=== PATIENT | male | born 1950 | race Caucasian/White ===

== ENCOUNTER → 2020-04-07 17:13 | Outpatient (CLI) | payer OTHER, MEDICARE, SELFPAY ==
[2020-04-07 17:31] LABS: Basophils # 0.1 K/mm3 (0-0.2); Basophils % 0.8 % (0.1-2.0); Eosinophils # 0.5 K/mm3 (0.0-0.4); Eosinophils % 6.7 % (0.1-12.0); Hemoglobin 16.5 g/dL (14.1-18.0); Lymphocytes # 2.4 K/mm3 (0.7-4.5); Mean Corpuscular HGB Conc 33.7 g/dL (31.8-35.4); Mean Corpuscular Hemoglobin 32.7 pg (27.0-31.2); Mean Corpuscular Volume 96.9 fl (80-94); Mean Platelet Volume 7.6 fl (7.4-10.4); Monocytes # 0.5 K/mm3 (0.1-1.0); Monocytes % 5.8 % (1.7-9.3); Neutrophils # 4.5 K/mm3 (1.8-7.8); Neutrophils % 56.7 % (37.0-80.0); Platelet Count 339 K/mm3 (142-424); Red Blood Count 5.05 M/mm3 (4.60-6.20); White Blood Count 7.9 K/mm3 (4.8-10.8)
[2020-04-07 18:58] LABS: Chloride 104 mmol/L (98-107); Sodium 138 mmol/L (136-145)
[2020-04-07 18:59] LABS: Potassium 4.6 mmoL/L (3.5-5.1)
[2020-04-07 19:01] LABS: Alanine Aminotransferase 31 U/L (12-78); Albumin Level 4.1 g/dl (3.5-5.0); Albumin/Globulin Ratio 1.4 (1.1-1.8); Alkaline Phosphatase 66 U/L (38-126); Anion Gap 10.6 mEq/L (5-15); Aspartate Amino Transferase 47 U/L (17-59); Bilirubin,Total 0.8 mg/dl (0.2-1.3); Blood Urea Nitrogen 24 mg/dl (9-20); Carbon Dioxide 28 mmol/L (22.0-30.0); Estimated Glomerular Filt Rate 96 ml/min (>60); GFR (African American) 116 ML/MIN (>60); Total Protein,Serum 7.1 g/dl (6.3-8.2)
[2020-04-07 19:02] LABS: Calcium 9.5 mg/dl (8.4-10.2); Cholesterol 214 mg/dl (140-200); Glucose 98 mg/dl (74-100); HDL Cholesterol 53 mg/dl (40-60); Triglycerides 164 mg/dl (30-150); VLDL Cholesterol 33 mg/dL (0-40)
[2020-04-09 11:39] LABS: PSA, Free 0.76 ng/mL; Prostate Specific Ag 3.3 ng/mL (0.0-4.0)
== END ==
PROVIDERS: Visit Provider Family Medicine
DX: Z00.00 Encounter for general adult medical examination without abnormal findings (principal)
CPT/HCPCS: 80053; 80061; 84153; 84154; 85025

== ENCOUNTER 2020-10-21 21:36 | Observation (INO) | payer MEDICARE, OTHER, SELFPAY ==
[2020-10-21] VITALS (7 sets, daily range): BP systolic 132–158; BP diastolic 74–87; PULSE 60–84; RESP 16–20; TEMP 36.3–36.7; O2SAT 93–99; BMI 21.5; BMI 20.8
--- NOTE | 2020-10-21 | IR_ITS ---
APPROVED REPORT Patient Location: Emergent Subway Operator: MARTIN Ng RT (R) PROCEDURES Left heart catheterization Left ventriculogram Selective coronary angiogram Drug-eluting stent deployment to the mid right coronary artery INDICATION Acute ST elevation myocardial infarction, Coronary artery disease Informed consent was obtained prior to the procedure. COMPLICATIONS none Estimated Blood Loss: less than 10 mls TECHNIQUE One percent lidocaine used to anesthetize the right anterior aspect of the wrist. The right radial artery was accessed via the Seldinger technique. A 6 Armenian sheath was placed in the right radial artery. 2.5 mg of verapamil, 800 mcg of nitroglycerin, 1mg Lidocaine and 5000 U Heparin were given through the arterial sheath. The Seeonicpa catheter was also used to perform left heart catheterization, left ventriculogram and selective coronary angiogram. At the end of the diagnostic angiogram therapeutic heparin was already administered however the ACT machine malfunction. Because of the 100 units/kg administered prior to the procedure it was presumed the ACT was therapeutic. Because of this interventional procedure was performed.. The guide catheter was placed into the right coronary artery and a Choice PT floppy wire was placed into the distal right coronary. A 2.25 x 30 mm resolute david stent was deployed at 24 shanon reducing the critical stenosis to 0%. POLLY-2 flow was present at the beginning of the procedure with POLLY-3 flow at the end of the procedure. At the end of procedure the apparatus was removed the sheath was removed and hemostasis was achieved using TR banding patient was transferred to the postop putting in stable condition. Because the CT machine was still broken at the end of the procedure an additional 2000 units of heparin was administered for safety purposes. ANGIOGRAPHIC RESULTS The left main artery Normal The left anterior descending artery Has proximal multiple 10% stenoses with a mid vessel long 20 to 30% stenosis and distal 30% stenoses. The circumflex artery Is non-dominant vessel and is proximally normal. Distal to the first obtuse marginal artery there is a 40% stenosis with multiple 30 and 40% stenoses throughout the mid segment. A large first obtuse marginal artery has a proximal 30 to 40% concentric stenosis The right coronary artery Is a large dominant vessel which has a proximal 40% stenosis in mid vessel 90% concentric stenosis. Distally there is POLLY II flow. At the end of the procedure the large posterior lateral branch was now widely open which had mid vessel 30% stenosis The HAUSER ventriculogram reveals Hyperdynamic at 70% The left ventricular end-diastolic pressure 10 mmHg IMPRESSION Critical disease in the mid dominant right coronary artery supplying a massively large posterior lateral branch Successful stenting of the proximal to mid dominant right coronary artery critical disease reduced to 0% with 1 drug-eluting stent Moderate disease in the nondominant yet still large circumflex artery Mild to moderate disease throughout the LAD Hyperdynamic ventricle Normal left ventricular end-diastolic pressure PLAN 1. Brilinta and aspirin 2. LDL less than 55 3. Beta-blockers and HUGO inhibitors 4. Avoidance of tobacco products 5. Cardiac rehabilitation Electronically signed by : Rafa Jade, 10/21/2020 23:05:56
--- NOTE | 2020-10-21 21:46 | XR_ITS ---
PROCEDURE: XR CHEST PORTABLE CLINICAL HISTORY: chest pain Severe chest pain COMPARISON: No exams were available for comparison FINDINGS: Prior median sternotomy. Normal heart size. The lungs are clear without infiltrates, suspicious nodules, or pleural effusions. No acute bony abnormalities. IMPRESSION: No acute findings. Dictated by: David Cardoza MD 10/22/2020 05:35 David Cardoza MD in [place] 10/22/2020 05:35
--- NOTE | 2020-10-21 21:46 | ECG_ITS ---
APPROVED REPORT Exam: Resting ECG HR:73 bpm ECG Measurements Heart Rate 73 AXES GA 180 P 84 QRSd 122 QRS 0 QT 380 T 79 QTc 418 Conclusion Normal sinus rhythm Nonspecific intraventricular conduction delay Borderline ECG Electronically signed by : Tom Bhandari, 10/22/2020 06:25:20
--- NOTE | 2020-10-21 21:46 | HMH.EDCP ---
ED Disposition Clinical Impression: Unstable angina pectoris, Tobacco use Hyperlipidemia Qualifiers: Hyperlipidemia type: unspecified Qualified Code(s): E78.5 - Hyperlipidemia, unspecified COPD (chronic obstructive pulmonary disease) Qualifiers: COPD type: unspecified COPD Qualified Code(s): J44.9 - Chronic obstructive pulmonary disease, unspecified Disposition: Admitted As Inpatient Condition on Discharge: Good - Critical Care Critical Care Time: No Attestation: On 10/21/20, the high probability of a clinically significant, sudden or life threatening deterioration of the following system(s) required my full and direct attention, intervention and personal management. The time I documented below is in addition to time spent performing reported procedures but includes the following listed in this critical care notation. Medical Decision Making - Medical Records Medical records reviewed: Yes: I reviewed the patient's medical records. - Lonnie Inquiry Pt receiving controlled substance: No Vital Signs: 10/21/20 21:39 Temperature 98.1 F Temperature Source Oral Pulse Rate [Right Brachial] 84 Respiratory Rate 16 Blood Pressure [Right Arm] 152/75 H Blood Pressure Mean [Right Arm] 100 Blood Pressure Source [Right Arm] Automatic Cuff Blood Pressure Position [Right Arm] Sitting 02 Sat by Pulse Oximetry 93 L Oxygen Delivery Method Room Air - Lab Data Lab results reviewed: Yes: I reviewed the patient's lab results. Lab Results 10/21/20 21:45: WBC 7.5, RBC 4.93, Hgb 16.2, Hct 48.8, MCV 98.9 H, MCH 32.9 H, MCHC 33.2, RDW 13.3, Plt Count 278, MPV 7.3 L, Neut % (Auto) 59.2, Lymph % (Auto) 30.0, [place] % (Auto) 5.6, Eos % (Auto) 3.9, Baso % (Auto) 1.3, Neut # (Auto) 4.4, Lymph # (Auto) 2.2, [place] # (Auto) 0.4, Eos # (Auto) 0.3, Baso # (Auto) 0.1 10/21/20 21:45: Sodium 137, Potassium 3.2 L, Chloride 102, Carbon Dioxide 27, Anion Gap 11.2, BUN 20, Creatinine 0.90, Estimated Creat Clear 65, Estimated GFR 84, Est GFR ( Amer) 101, Glucose 165 H, Calcium 9.5, Troponin I < 0.01, NT-Pro-B Natriuret Pep 34.3, Thyroxine (T4) 12.0 H Result diagrams: 10/21/20 21:45 10/21/20 21:45 Orders (Tests/Meds): ED MEDICATIONS Generic Name Dose Route Start Last Admin Trade Name Freq PRN Reason Stop Dose Admin Nitroglycerin 0.4 mg 10/21/20 21:47 10/21/20 21:50 Nitroglycerin 0.4mg Sl Tablet SL 11/20/20 21:46 1 tab [id number] PRN Administration Chest Pain Discontinued Medications Generic Name Dose Route Start Last Admin Trade Name Freq PRN Reason Stop Dose Admin Aspirin 324 mg 10/21/20 21:46 10/21/20 21:50 Aspirin 81mg Chewable Tablet PO 10/21/20 21:47 324 mg ONCE ONE Administration Heparin Sodium (Porcine) 6,600 unit 10/21/20 22:02 10/21/20 22:06 Heparin Sodium 5,000 Unit/Ml Vial IV 10/21/20 22:03 6,600 unit ONCE ONE Administration Ticagrelor 180 mg 10/21/20 22:03 10/21/20 22:06 Ticagrelor 90mg Tablet PO 10/21/20 22:04 180 mg ONCE ONE Administration ORDERS Category Date Time Status XR chest portable Stat Exams 10/21/20 21:46 Taken Basic Metabolic Panel Stat Lab 10/21/20 21:45 Results Brain Natriuretic Peptide Stat Lab 10/21/20 21:45 Results Covid-19 IgG/IgM ([facility]) Stat Lab 10/21/20 21:45 Received T4 (Thyroxine) Stat Lab 10/21/20 21:45 Results Thyroid Stimulating Hormone Stat Lab 10/21/20 21:45 Results Troponin I Q3H Lab 10/22/20 01:00 Ordered Troponin I Q3H Lab 10/22/20 04:00 Ordered Troponin I Stat Lab 10/21/20 21:45 Results - Radiology Data #1 Image(s): Chest Image Reviewed: Yes I reviewed the patient's radiology image Preliminary Findings: Abnormal (copd ) - ECG Data Tracing #1 Normal Sinus Rhythm: Yes Ischemic changes: non-specific ST-T wave changes - Physician Consults Physician Consulted: deniz Reason -: Pt condition Medical Decision Narrative: sig risk factors and unstable angina will go to medical laboratory manager Chest Pain
--- NOTE | 2020-10-21 21:55 | PC.NURSE ---
paged dr guaman.
[2020-10-21 21:56] LABS: Basophils # 0.1 K/mm3 (0-0.2); Basophils % 1.3 % (0.1-2.0); Eosinophils # 0.3 K/mm3 (0.0-0.4); Eosinophils % 3.9 % (0.1-12.0); Hematocrit 48.8 % (42.0-52.0); Hemoglobin 16.2 g/dL (14.1-18.0); Lymphocytes # 2.2 K/mm3 (0.7-4.5); Mean Corpuscular HGB Conc 33.2 g/dL (31.8-35.4); Mean Corpuscular Hemoglobin 32.9 pg (27.0-31.2); Mean Corpuscular Volume 98.9 fl (80-94); Mean Platelet Volume 7.3 fl (7.4-10.4); Monocytes # 0.4 K/mm3 (0.1-1.0); Monocytes % 5.6 % (1.7-9.3); Neutrophils # 4.4 K/mm3 (1.8-7.8); Neutrophils % 59.2 % (37.0-80.0); Platelet Count 278 K/mm3 (142-424); Red Blood Count 4.93 M/mm3 (4.60-6.20); Red Cell Distribution Width 13.3 % (11.5-17.5); White Blood Count 7.5 K/mm3 (4.8-10.8)
--- NOTE | 2020-10-21 21:57 | PC.NURSE ---
speaking with dr guaman
[2020-10-21 21:58] LABS: Chloride 102 mmol/L (98-107); Potassium 3.2 mmoL/L (3.5-5.1); Sodium 137 mmol/L (136-145)
[2020-10-21 22:01] LABS: Anion Gap 11.2 mEq/L (5-15); Blood Urea Nitrogen 20 mg/dl (9-20); Calcium 9.5 mg/dl (8.4-10.2); Carbon Dioxide 27 mmol/L (22.0-30.0); Creatinine Clearance Estimated 65 mL/min (50-200); Estimated Glomerular Filt Rate 84 ml/min (>60); GFR (African American) 101 ML/MIN (>60); Glucose 165 mg/dl (74-100)
[2020-10-21 22:11] LABS: NT Pro Brain Natriuretic Pep. 34.3 pg/mL (0-125)
[2020-10-21 22:22] LABS: Troponin I < 0.01 ng/ml (0.00-0.034)
[2020-10-21 22:24] LABS: Coronavirus 19 IgG Antibody Negative (Negative); Coronavirus 19 IgM Antibody Negative (Negative)
[2020-10-21 22:32] LABS: Thyroid Stimulating Hormone 2.75 uIU/mL (0.465-4.68)
--- NOTE | 2020-10-21 23:37 | PC.NURSE ---
PT ARRIVED TO THE FLOOR VIA STRETCHER FROM HOME BASED ASSISTANT WITH STAFF AT [id number]
[2020-10-22] VITALS (14 sets, daily range): BP systolic 108–149; BP diastolic 67–106; PULSE 54–73; RESP 14–17; TEMP 36.3–36.9; O2SAT 94–100; BMI 20.7
[2020-10-22 01:39] LABS: Troponin I 0.02 ng/ml (0.00-0.034)
[2020-10-22 04:38] LABS: Basophils # 0.1 K/mm3 (0-0.2); Eosinophils # 0.3 K/mm3 (0.0-0.4); Eosinophils % 3.7 % (0.1-12.0); Hematocrit 48.1 % (42.0-52.0); Hemoglobin 15.6 g/dL (14.1-18.0); Lymphocytes # 1.9 K/mm3 (0.7-4.5); Lymphocytes % 23.8 % (10-50); Mean Corpuscular HGB Conc 32.5 g/dL (31.8-35.4); Mean Corpuscular Hemoglobin 32.4 pg (27.0-31.2); Mean Corpuscular Volume 99.7 fl (80-94); Mean Platelet Volume 7.2 fl (7.4-10.4); Monocytes # 0.6 K/mm3 (0.1-1.0); Monocytes % 7.7 % (1.7-9.3); Neutrophils # 5.2 K/mm3 (1.8-7.8); Neutrophils % 63.9 % (37.0-80.0); Platelet Count 260 K/mm3 (142-424); Red Blood Count 4.82 M/mm3 (4.60-6.20); Red Cell Distribution Width 13.6 % (11.5-17.5); White Blood Count 8.2 K/mm3 (4.8-10.8)
[2020-10-22 04:53] LABS: Anion Gap 8.3 mEq/L (5-15); Blood Urea Nitrogen 18 mg/dl (9-20); Calcium 8.8 mg/dl (8.4-10.2); Carbon Dioxide 27 mmol/L (22.0-30.0); Chloride 106 mmol/L (98-107); Creatinine Clearance Estimated 64 mL/min (50-200); Estimated Glomerular Filt Rate 84 ml/min (>60); GFR (African American) 101 ML/MIN (>60); Glucose 106 mg/dl (74-100); Magnesium 1.8 mg/dl (1.6-2.3); Potassium 3.3 mmoL/L (3.5-5.1); Sodium 138 mmol/L (136-145)
[2020-10-22 05:14] LABS: Troponin I 0.03 ng/ml (0.00-0.034)
--- NOTE | 2020-10-22 05:37 | PC.NURSE ---
Pt has not c/o any chest pain since arrival to floor. He did state that he has had some soa at times. Has c/o headache x1 this shift. (R) radiaL cath site with 2x2 and te[address] in place. No drainage or hematoma noted. VS have remained stable. Medications administered per dec. Will continue to monitor.
--- NOTE | 2020-10-22 08:00 | CA_ITS ---
APPROVED REPORT EXAM: Comprehensive 2D, Doppler, and color-flow Echocardiogram Punch Molder: Maris Nova [facility] Ht: 5 ft 9 in Wt: 146lbs BSA: 1.81 BP: 152/75 mmHg Indications: cp, COPD, smoker,mi Echo Enhancing Agent Comments: TDE lung impedence 2D Dimensions LVDs 2.70 cm Aortic Root 2.91 cm Left Atrium 1.98 cm LVOT 2.00 cm (M/F) 1.5-2.5 M-Mode Dimensions LA Diam 3.04 cm (1.9-4.0) LVDd 3.57 cm (3.5-5.7) Ao Diam 2.92 cm (2.0-3.7) LVDs 2.35 cm (3.5-5.7) EF (Teich) 64.20% EPSs 0.60 cm FS 34.20% EDV (Teich) 53.30 mL ESV (Teich) 19.10 mL LV Diastology E Decel Time 257.00 (160-240 msec) E/A Ratio 0.79 MED E' 6.90 (< 7 cm/sec) MED A' 10.90 cm/s E'/MED E' Ratio 8.64 (>14) LAT E' 8.40 (<10 cm/sec) LAT A' 8.40 cm/s E/LAT E' Ratio 7.10 (>14) Aortic Valve AO Peak GR. 4.00 mmHg Mitral Valve MV A Velocity 76.00 (40-130 cm/s) E/A Ratio 0.79 MV Decel. Time 257.00 (160-240 ms) Tricuspid Valve TR P. Velocity 252.00 cm/s RAP Estimate 10.00 mmHg RVSP 35.40 mmHg Left Ventricle Left atrium is mildly enlarged, left ventricle is normal size, mild concentric left ventricular hypertrophy, visually estimated ejection fraction approximately 45%, there is moderate hypokinesis involving mid to distal septum and anterior apical wall. Grade 1 diastolic dysfunction seen without tissue Doppler evidence of raise left atrial pressure. Right Ventricle Right atrium and right ventricle are mildly enlarged with normal contractility. Aortic Valve Aortic valve is minimally thickened and fibrosed, there is no aortic stenosis or aortic insufficiency. Mitral Valve Mitral valve is grossly normal, there is no mitral stenosis. There is mild mitral regurgitation. Tricuspid Valve Tricuspid valve grossly normal, there is mild tricuspid regurgitation, calculated right ventricular systolic pressure 35 mmHg. Pulmonic Valve Pulmonic valve is poorly visualized. Great Vessels Aortic root is normal size. Pericardium No significant pericardial effusion noted. Conclusion 1. Biatrial enlargement, normal left ventricular size, mild concentric left ventricular hypertrophy Visually estimated ejection fraction 45% with segmental wall motion abnormality described above, grade 1 diastolic dysfunction seen without tissue Doppler evidence of raise left atrial pressure. 2. Mildly enlarged right ventricle with normal contractility. 3. Mild mitral and tricuspid regurgitation. Calculated right ventricular systolic pressure is 35 mmHg. 4. No significant pericardial effusion noted. Electronically signed by : Eric Abdi, 10/23/2020 13:35:44
--- NOTE | 2020-10-22 08:17 | HMH.PHAVTE ---
[facility] Pharmacy VTE Monitoring - Patient Demographics Admission date: 10/22/20 Report Date: 10/22/20 Time: 08:17 Allergies/Adverse Reactions: Patient Allergies No Known Allergies Allergy (Unverified 10/22/20 08:15) Height: 1.77 m Weight: 64.949 kg Patient Problems: Current Active Problems Unstable angina pectoris (Acute) Tobacco use (Acute) COPD (chronic obstructive pulmonary disease) (Acute) Hyperlipidemia (Acute) - VTE Risk Labs: VTE Related Lab Results Hgb 15.6 g/dL (14.1-18.0) 10/22/20 04:20 Hct 48.1 % (42.0-52.0) 10/22/20 04:20 Plt Count 260 K/mm3 (142-424) 10/22/20 04:20 BUN 18 mg/dl (9-20) 10/22/20 04:20 Creatinine 0.90 mg/dl (0.66-1.25) 10/22/20 04:20 Estimated Creat Clear 64 mL/min (50-200) 10/22/20 04:20 Was VTE Risk Assessment Performed: Yes VTE Score: 5 VTE Risk Level: Low Risk Clinical Trial Participant: No - Prophylaxis VTE Prophylaxis Ordered?: Yes Types of VTE Prophylaxis: TEDS Knee High Location of Applied Device: Bilateral Lower Extremeties
--- NOTE | 2020-10-22 09:35 | P.HP_ITS ---
*Admission Date: 10/22/20 [facility] History Medical History: Reports:: Hyperlipidemia Denies:: Cancer, Diabetes Mellitus Type 1, Diabetes Mellitus Type 2, MRSA *Have you ever received a pneumonia vaccine?: Yes *Have you received a flu vaccine this season?: Yes Other Surgeries: Yes: Cardiac Catheterization, Cholecystectomy Amputation: No - *Social History Smoking Status: Current every day smoker # Packs/Day (cigarettes): 2 Alcohol Intake: former *Occupational Status:: employed *Travel in the last 8 weeks: None Family Hx:: Coronary Artery Disease, Heart Attack, Hyperlipidemia, Hypertension Review of Systems - *Neurologic Denies headache(s), Denies seizure-like activity Meds Home Medications Medication Instructions Recorded Confirmed Type Atorvastatin Calcium [Lipitor 10mg 10 mg PO HS 10/21/20 10/22/20 History Tab] Aspirin [Aspirin 81mg EC Tab] 81 mg PO DAILY 10/22/20 10/22/20 History Allergies Allergy/AdvReac Type Severity Reaction Status Date / Time No Known Allergies Allergy Unverified 10/22/20 08:15 Exam Vital signs and Labs for Last 24 Hours: Temp Pulse Resp BP Pulse Ox 98.4 F 61 15 131/85 99 10/22/20 08:00 10/22/20 08:00 10/22/20 08:00 10/22/20 08:00 10/22/20 08:00 Laboratory Results - last 24 hr 10/21/20 21:45: WBC 7.5, RBC 4.93, Hgb 16.2, Hct 48.8, MCV 98.9 H, MCH 32.9 H, MCHC 33.2, RDW 13.3, Plt Count 278, MPV 7.3 L, Neut % (Auto) 59.2, Lymph % (Auto) 30.0, [place] % (Auto) 5.6, Eos % (Auto) 3.9, Baso % (Auto) 1.3, Neut # (Auto) 4.4, Lymph # (Auto) 2.2, [place] # (Auto) 0.4, Eos # (Auto) 0.3, Baso # (Auto) 0.1 10/21/20 21:45: Sodium 137, Potassium 3.2 L, Chloride 102, Carbon Dioxide 27, Anion Gap 11.2, BUN 20, Creatinine 0.90, Estimated Creat Clear 65, Estimated GFR 84, Est GFR ( Amer) 101, Glucose 165 H, Calcium 9.5, Troponin I < 0.01, NT-Pro-B Natriuret Pep 34.3, TSH 2.75, Thyroxine (T4) 12.0 H 10/21/20 21:45: SARS-CoV-2 IgG Ab (Rapid) Negative, SARS-CoV-2 IgM Ab (Rapid) Negative 10/22/20 01:11: Troponin I 0.02 10/22/20 04:20: Troponin I 0.03 10/22/20 04:20: WBC 8.2, RBC 4.82, Hgb 15.6, Hct 48.1, MCV 99.7 H, MCH 32.4 H, MCHC 32.5, RDW 13.6, Plt Count 260, MPV 7.2 L, Neut % (Auto) 63.9, Lymph % (Auto) 23.8, [place] % (Auto) 7.7, Eos % (Auto) 3.7, Baso % (Auto) 1.0, Neut # (Auto) 5.2, Lymph # (Auto) 1.9, [place] # (Auto) 0.6, Eos # (Auto) 0.3, Baso # (Auto) 0.1 10/22/20 04:20: Sodium 138, Potassium 3.3 L, Chloride 106, Carbon Dioxide 27, Anion Gap 8.3, BUN 18, Creatinine 0.90, Estimated Creat Clear 64, Estimated GFR 84, Est GFR ( Amer) 101, Glucose 106 H D, Calcium 8.8, Magnesium 1.8 I & O for Last 24 hours: Intake & Output 10/19/20 10/20/20 10/21/20 10/22/20 23:59 23:59 23:59 23:59 Intake Total 600 / 600 Balance 600 / 600 Weight 143 lb 3 oz 143 lb 3.008 oz
--- NOTE | 2020-10-22 09:54 | HMH.CNCARD ---
History of Present Illness Consult date: 10/22/20 Requesting physician: Demetrius Florez Consult reason: chest pain Chief complaint: chest pain History of present illness: This is a 69-year-old gentleman who was admitted to the hospital with chest pain. The patient came into the emergency department because he felt as if an elephant was sitting on his chest. This was radiating down his left arm and had been numb since the pressure in his chest started. It is associated with shortness of breath. The pain was severe. Worse with exertion and nothing was really helping to improve the pain. Once the patient came into the hospital he was taken to the cardiac catheterization laboratory and underwent left cardiac catheterization. His left cardiac catheterization showed: Critical disease in the mid dominant right coronary artery supplying a massively large posterior lateral branch Successful stenting of the proximal to mid dominant right coronary artery critical disease reduced to 0% with 1 drug-eluting stent Moderate disease in the nondominant yet still large circumflex artery Mild to moderate disease throughout the LAD Hyperdynamic ventricle Normal left ventricular end-diastolic pressure PLAN 1. Brilinta and aspirin 2. LDL less than 55 3. Beta-blockers and HUGO inhibitors 4. Avoidance of tobacco products 5. Cardiac rehabilitation The patient will remain on Brilinta and aspirin for dual antiplatelet therapy. This morning he denies any chest pain or pressure. He denies any shortness of breath or edema. He denies any fever, chills, nausea, vomiting, diarrhea, PND or orthopnea. He states he feels great and is ready to go home. [facility] History I have reviewed the patient's past medical history: Yes Medical History: Reports:: Coronary Artery Disease, Hyperlipidemia Denies:: Cancer, Diabetes Mellitus Type 1, Diabetes Mellitus Type 2, MRSA *Have you ever received a pneumonia vaccine?: Yes *Have you received a flu vaccine this season?: Yes Other Surgeries: Yes: Cardiac Catheterization, Cholecystectomy Amputation: No - *Social History Smoking Status: Current every day smoker # Packs/Day (cigarettes): 2 Alcohol Intake: former *Occupational Status:: employed *Travel in the last 8 weeks: None Family Hx:: Coronary Artery Disease, Heart Attack, Hyperlipidemia, Hypertension Meds Home Medications Medication Instructions Recorded Confirmed Type Atorvastatin Calcium [Lipitor 10mg 10 mg PO HS 10/21/20 10/22/20 History Tab] Aspirin [Aspirin 81mg EC Tab] 81 mg PO DAILY 10/22/20 10/22/20 History Allergies Allergy/AdvReac Type Severity Reaction Status Date / Time No Known Allergies Allergy Unverified 10/22/20 08:15 Exam Vital signs and Labs for Last 24 Hours: Temp Pulse Resp BP Pulse Ox 98.4 F 61 15 131/85 99 10/22/20 08:00 10/22/20 08:00 10/22/20 08:00 10/22/20 08:00 10/22/20 08:00 Laboratory Results - last 24 hr 10/21/20 21:45: WBC 7.5, RBC 4.93, Hgb 16.2, Hct 48.8, MCV 98.9 H, MCH 32.9 H, MCHC 33.2, RDW 13.3, Plt Count 278, MPV 7.3 L, Neut % (Auto) 59.2, Lymph % (Auto) 30.0, [place] % (Auto) 5.6, Eos % (Auto) 3.9, Baso % (Auto) 1.3, Neut # (Auto) 4.4, Lymph # (Auto) 2.2, [place] # (Auto) 0.4, Eos # (Auto) 0.3, Baso # (Auto) 0.1 10/21/20 21:45: Sodium 137, Potassium 3.2 L, Chloride 102, Carbon Dioxide 27, Anion Gap 11.2, BUN 20, Creatinine 0.90, Estimated Creat Clear 65, Estimated GFR 84, Est GFR ( Amer) 101, Glucose 165 H, Calcium 9.5, Troponin I < 0.01, NT-Pro-B Natriuret Pep 34.3, TSH 2.75, Thyroxine (T4) 12.0 H 10/21/20 21:45: SARS-CoV-2 IgG Ab (Rapid) Negative, SARS-CoV-2 IgM Ab (Rapid) Negative 10/22/20 01:11: Troponin I 0.02 10/22/20 04:20: Troponin I 0.03 10/22/20 04:20: WBC 8.2, RBC 4.82, Hgb 15.6, Hct 48.1, MCV 99.7 H, MCH 32.4 H, MCHC 32.5, RDW 13.6, Plt Count 260, MPV 7.2 L, Neut % (Auto) 63.9, Lymph % (Auto) 23.8, [place] % (Auto) 7.7, Eos % (Auto) 3.7, Baso % (Auto) 1.0, Neut # (Auto) 5.2, L
[2020-10-22 10:12] LABS: Alanine Aminotransferase 24 U/L (12-78); Albumin Level 3.7 g/dl (3.5-5.0); Alkaline Phosphatase 53 U/L (38-126); Aspartate Amino Transferase 29 U/L (17-59); Bilirubin,Direct 0.4 mg/dl (0.0-0.4); Bilirubin,Indirect 0.5 mg/dL (0.0-0.9); Bilirubin,Total 0.9 mg/dl (0.2-1.3); Bilirubin,Unconjugated 0.6 mg/dL (0.0-1.1); Chol/HDL Ratio 3.4 (1-3.5); Cholesterol 162 mg/dl (140-200); HDL Cholesterol 48 mg/dl (40-60); Total Protein,Serum 6.4 g/dl (6.3-8.2); Triglycerides 87 mg/dl (30-150); VLDL Cholesterol 17 mg/dL (0-40)
[2020-10-22 10:23] LABS: Direct LDL Cholesterol 93.52 mg/dL (100-129)
--- NOTE | 2020-10-22 11:36 | HMH.HPDC ---
General - General Admission date:: 10/21/20 Discharge date: 10/22/20 *Admission Date: 10/22/20 *Chief complaint: Chest Pain *History of present illness: 69-year-old male patient reports he was sitting at home in his chair when he felt a sudden left-sided chest pain that radiated up into his neck and down his left arm. He reports this felt like an elephant was sitting on his chest, he also reports shortness of breath and states the pain was severe and came to the emergency department. In the emergency department he was evaluated, cardiac cath team was alerted and he was taken for a cardiac catheterization. He does have a history of COPD, tobacco use and denies any CAD [facility] History Medical History: Reports:: Coronary Artery Disease, Hyperlipidemia Denies:: Cancer, Diabetes Mellitus Type 1, Diabetes Mellitus Type 2, MRSA *Have you ever received a pneumonia vaccine?: Yes *Have you received a flu vaccine this season?: Yes Other Surgeries: Yes: Cardiac Catheterization, Cholecystectomy Amputation: No - *Social History Smoking Status: Current every day smoker # Packs/Day (cigarettes): 2 Alcohol Intake: former *Occupational Status:: employed *Travel in the last 8 weeks: None Family Hx:: Coronary Artery Disease, Heart Attack, Hyperlipidemia, Hypertension Review of Systems - Review of Systems Review of systems:: pertinent systems reviewed and negative unless documented below - Constitutional Denies anorexia, Denies weight gain - Eyes Denies blind spots, Denies change in vision - ENT Denies difficulty swallowing, Denies nasal obstruction - *Cardiovascular Reports chest pain, Reports chest pain at rest, Reports shortness of breath - *Respiratory Reports shortness of breath, Denies chest congestion, Denies cough - *Gastrointestinal Denies abdominal pain, Denies change in stools - *Genitourinary Reports difficulty urinating, Denies frequent nighttime urination - *Musculoskeletal Denies abnormal walking, Denies decreased muscle mass - Integumentary/Breasts Denies hair loss, Denies sensitivity to light - *Neurologic Denies headache(s), Denies seizure-like activity - Psychiatric Denies abnormal sleep pattern, Denies confusion - Endocrine Denies cold intolerance, Denies heat intolerance - Hematologic/Lymphatic Denies easy bleeding, Denies easy bruising - Allergic/Immunologic Denies GI upset with certain foods, Denies tongue swelling Exam Vital signs and Labs for Last 24 Hours: Temp Pulse Resp BP Pulse Ox 98.4 F 61 15 131/85 99 10/22/20 08:00 10/22/20 08:00 10/22/20 08:00 10/22/20 08:00 10/22/20 08:00 Laboratory Results - last 24 hr 10/21/20 21:45: WBC 7.5, RBC 4.93, Hgb 16.2, Hct 48.8, MCV 98.9 H, MCH 32.9 H, MCHC 33.2, RDW 13.3, Plt Count 278, MPV 7.3 L, Neut % (Auto) 59.2, Lymph % (Auto) 30.0, [place] % (Auto) 5.6, Eos % (Auto) 3.9, Baso % (Auto) 1.3, Neut # (Auto) 4.4, Lymph # (Auto) 2.2, [place] # (Auto) 0.4, Eos # (Auto) 0.3, Baso # (Auto) 0.1 10/21/20 21:45: Sodium 137, Potassium 3.2 L, Chloride 102, Carbon Dioxide 27, Anion Gap 11.2, BUN 20, Creatinine 0.90, Estimated Creat Clear 65, Estimated GFR 84, Est GFR ( Amer) 101, Glucose 165 H, Calcium 9.5, Troponin I < 0.01, NT-Pro-B Natriuret Pep 34.3, TSH 2.75, Thyroxine (T4) 12.0 H 10/21/20 21:45: SARS-CoV-2 IgG Ab (Rapid) Negative, SARS-CoV-2 IgM Ab (Rapid) Negative 10/22/20 01:11: Troponin I 0.02 10/22/20 04:20: Troponin I 0.03 10/22/20 04:20: WBC 8.2, RBC 4.82, Hgb 15.6, Hct 48.1, MCV 99.7 H, MCH 32.4 H, MCHC 32.5, RDW 13.6, Plt Count 260, MPV 7.2 L, Neut % (Auto) 63.9, Lymph % (Auto) 23.8, [place] % (Auto) 7.7, Eos % (Auto) 3.7, Baso % (Auto) 1.0, Neut # (Auto) 5.2, Lymph # (Auto) 1.9, [place] # (Auto) 0.6, Eos # (Auto) 0.3, Baso # (Auto) 0.1 10/22/20 04:20: Sodium 138, Potassium 3.3 L, Chloride 106, Carbon Dioxide 27, Anion Gap 8.3, BUN 18, Creatinine 0.90, Estimated Creat Clear 64, Estimated GFR 84, Est GFR ( Amer) 101, Gluco
--- NOTE | 2020-10-22 13:01 | HMH.PHACLD ---
David Armenta has received discharge medication counseling on the following medications: PATIENT IS STARTING ON ASPIRIN 81 MG DAILY, ATORVASTATIN 40 MG HS, BISOPROLOL 5 MG DAILY, LISINOPRIL 5 MG DAILY, AND BRILINTA 90 MG BID. PATIENT HAD PREVIOUSLY BEEN TAKING ATORVASTATIN 10 MG HS ONLY.
[2020-10-22 14:32] LABS: CATHL Activated Clotting Time 294 SEC (74-125)
== END 2020-10-22 13:25 | disposition home or self-care (01) ==
LOC: ER 21:50 → 2ND 22:11
PROVIDERS: Internal Medicine; Nurse Practitioner Family; Admitting Provider Emergency Medicine; Emergency Provider Emergency Medicine; PCP Family Medicine; Visit Provider Emergency Medicine
DX: I25.110 Atherosclerotic heart disease of native coronary artery with unstable angina pectoris (principal); Z82.49 Family history of ischemic heart disease and other diseases of the circulatory system; Z72.0 Tobacco use; E78.5 Hyperlipidemia, unspecified; Z79.899 Other long term (current) drug therapy
CPT/HCPCS: 36415; 71045; 80048; 80061; 80076; 83735; 83880; 84436; 84443; 84484; 85025; 85347; 86328; 92928; 93005; 93306; 93458; 96375; 99152; 99284; C1725; C1769; C1876; C9600; G0378; J1644; Q9967

== ENCOUNTER 2020-11-09 12:50 | Emergency (ER) | payer MEDICARE, SELFPAY ==
[2020-11-09] VITALS (8 sets, daily range): BP systolic 128–149; BP diastolic 72–90; PULSE 51–75; RESP 16–18; TEMP 36.6–36.8; O2SAT 96–99; BMI 20.7
--- NOTE | 2020-11-09 12:47 | ECG_ITS ---
APPROVED REPORT Exam: Resting ECG HR:57 bpm ECG Measurements Heart Rate 57 AXES MN 172 P 79 QRSd 110 QRS 1 QT 410 T 81 QTc 399 Conclusion Sinus bradycardia Otherwise normal ECG Electronically signed by : Tom Bhandari, 11/10/2020 05:56:46
--- NOTE | 2020-11-09 12:51 | XR_ITS ---
PROCEDURE: XR CHEST 2V Referring Doctor: Azar Ramsey Patient Age:70Y CLINICAL HISTORY: chest soreness Chest pain COMPARISON: CR XR CHEST PORTABLE from 10/21/2020 FINDINGS: PA and lateral chest performed today and compared to portable CXR October 21 The lungs are mildly hyperexpanded but clear. Appearance suggests some underlying COPD with flattening the diaphragm and mild hyperexpansion. Median sternotomy. Heart is normal in size t-e cardiomediastinal silhouette and pulmonary vascularity are within normal limits.. Today's study shows no change since October 21 no acute infiltrate or findings but no pleural effusions nor pneumothorax. Chest wallunremarkable. On close inspection I note what appears biconcave compression fracture at the T12. Difficult to visualize on this study. Age indeterminate most likely old the . IMPRESSION: No acute findings. Lungs hyperexpanded suggesting COPD but with no active disease evident Sternotomy. . Biconcave compression fracture T12 a difficult to visualize but I believe present; most likely old feature Dictated by: Ryan Christopher MD 11/09/2020 14:32 Ryan Christopher MD in [place] 11/09/2020 14:32
[2020-11-09 13:15] LABS: Basophils # 0.1 K/mm3 (0-0.2); Basophils % 1.1 % (0.1-2.0); Eosinophils # 0.3 K/mm3 (0.0-0.4); Eosinophils % 3.9 % (0.1-12.0); Hematocrit 50.1 % (42.0-52.0); Lymphocytes # 1.8 K/mm3 (0.7-4.5); Lymphocytes % 21.7 % (10-50); Mean Corpuscular Hemoglobin 32.6 pg (27.0-31.2); Mean Corpuscular Volume 95.7 fl (80-94); Mean Platelet Volume 7.4 fl (7.4-10.4); Monocytes # 0.4 K/mm3 (0.1-1.0); Neutrophils # 5.7 K/mm3 (1.8-7.8); Neutrophils % 68.2 % (37.0-80.0); Platelet Count 307 K/mm3 (142-424); Red Blood Count 5.23 M/mm3 (4.60-6.20); Red Cell Distribution Width 13.2 % (11.5-17.5); White Blood Count 8.3 K/mm3 (4.8-10.8)
[2020-11-09 13:23] LABS: Anion Gap 11.3 mEq/L (5-15); Blood Urea Nitrogen 35 mg/dl (9-20); Calcium 9.5 mg/dl (8.4-10.2); Carbon Dioxide 28 mmol/L (22.0-30.0); Chloride 103 mmol/L (98-107); Creatinine Clearance Estimated 62 mL/min (50-200); Estimated Glomerular Filt Rate 83 ml/min (>60); GFR (African American) 101 ML/MIN (>60); Glucose 159 mg/dl (74-100); Potassium 4.3 mmoL/L (3.5-5.1); Sodium 138 mmol/L (136-145)
[2020-11-09 13:36] LABS: Troponin I < 0.01 ng/ml (0.00-0.034)
--- NOTE | 2020-11-09 13:56 | HMH.EDGENADL ---
ED Disposition Clinical Impression: Atypical chest pain Disposition: Home, Self-Care Condition on Discharge: Good Instructions: DI for Atypical Chest Pain Additional Instructions: Additional instructions for CHEST PAIN: See Dr. Jade tomorrow as scheduled.. Return immediately if worsening chest pain, vomiting, shortness of breath, fever, coughing of blood. Referrals: Abdullahi Valenzuela MD [Primary Care Provider] - - Critical Care Critical Care Time: No Attestation: On 11/09/20, the high probability of a clinically significant, sudden or life threatening deterioration of the following system(s) required my full and direct attention, intervention and personal management. The time I documented below is in addition to time spent performing reported procedures but includes the following listed in this critical care notation. Medical Decision Making - Medical Records Medical records reviewed: Yes: I reviewed the patient's medical records. Comment: Reviewed cardiac cath results from 10/21/2020. See result below. Reviewed follow-up cardiology visit on 10/30/2020. At that time patient had shortness of breath and this was felt to be due to Brilinta. He was changed to Plavix. Patient states that the symptoms then resolved. - Lonnie Inquiry Pt receiving controlled substance: No Vital Signs: 11/09/20 12:50 11/09/20 13:19 11/09/20 13:49 Temperature 98.2 F Temperature Source Oral Pulse Rate [Right] 58 L 56 L 55 L Respiratory Rate 16 16 18 Blood Pressure [Right Arm] 147/88 H 149/83 H 128/83 Blood Pressure Mean [Right Arm] 107 105 98 Blood Pressure Source [Right Arm] Automatic Cuff Blood Pressure Position [Right Arm] Sitting 02 Sat by Pulse Oximetry 98 98 96 Oxygen Delivery Method Room Air 11/09/20 14:00 11/09/20 14:32 11/09/20 15:40 Temperature Temperature Source Pulse Rate [Right] 55 L 55 L 51 L Respiratory Rate 18 18 18 Blood Pressure [Right Arm] 133/72 148/90 H 137/80 Blood Pressure Mean [Right Arm] 92 109 99 Blood Pressure Source [Right Arm] Automatic Cuff Blood Pressure Position [Right Arm] Supine 02 Sat by Pulse Oximetry 98 96 96 Oxygen Delivery Method Room Air - Lab Data Lab Results 11/09/20 12:58: WBC 8.3, RBC 5.23, Hgb 17.0, Hct 50.1, MCV 95.7 H, MCH 32.6 H, MCHC 34.0, RDW 13.2, Plt Count 307, MPV 7.4, Neut % (Auto) 68.2, Lymph % (Auto) 21.7, Gallia % (Auto) 5.0, Eos % (Auto) 3.9, Baso % (Auto) 1.1, Neut # (Auto) 5.7, Lymph # (Auto) 1.8, Gallia # (Auto) 0.4, Eos # (Auto) 0.3, Baso # (Auto) 0.1 11/09/20 12:58: Sodium 138, Potassium 4.3, Chloride 103, Carbon Dioxide 28, Anion Gap 11.3, BUN 35 H, Creatinine 0.90, Estimated Creat Clear 62, Estimated GFR 83, Est GFR ( Amer) 101, Glucose 159 H, Calcium 9.5, Troponin I < 0.01 11/09/20 15:55: Troponin I < 0.01 Result diagrams: 11/09/20 12:58 11/09/20 12:58 Orders (Tests/Meds): ORDERS Category Date Time Status Troponin I Q3H Lab 11/09/20 19:00 Ordered - Radiology Data #1 Image(s): Chest Image Reviewed: Yes I reviewed the patient's radiology image, Yes I have reviewed radiologist's interpretation PROCEDURE: XR CHEST 2V Referring Doctor: Azar Ramsey Patient Age:70Y CLINICAL HISTORY: chest soreness Chest pain COMPARISON: CR XR CHEST PORTABLE from 10/21/2020 FINDINGS: PA and lateral chest performed today and compared to portable CXR October 21 The lungs are mildly hyperexpanded but clear. Appearance suggests some underlying COPD with flattening the diaphragm and mild hyperexpansion. Median sternotomy. Heart is normal in size t-e cardiomediastinal silhouette and pulmonary vascularity are within normal limits.. Today's study shows no change since October 21 no acute infiltrate or findings but no pleural effusions nor pneumothorax. Chest wallunremarkable. On close inspection I note what appears biconcave compression fracture at the T12. Difficult to visualize on this
--- NOTE | 2020-11-09 14:13 | PC.NURSE ---
speaking wiht Dr. Jade
[2020-11-09 16:25] LABS: Troponin I < 0.01 ng/ml (0.00-0.034)
== END 2020-11-09 16:58 | disposition home or self-care (01) ==
PROVIDERS: Emergency Provider Emergency Medicine; PCP Family Medicine
DX: R07.89 Other chest pain (principal); R42 Dizziness and giddiness; Z95.5 Presence of coronary angioplasty implant and graft; I25.10 Atherosclerotic heart disease of native coronary artery without angina pectoris; E78.5 Hyperlipidemia, unspecified; F17.210 Nicotine dependence, cigarettes, uncomplicated; Z79.899 Other long term (current) drug therapy
CPT/HCPCS: 36415; 71046; 80048; 84484; 85025; 93005; 99283

== ENCOUNTER 2020-11-21 08:40 | Outpatient (RCR) | payer MEDICARE, SELFPAY | END 2021-01-21 09:44 | disposition home or self-care (01) | LOC: PT 08:40 | PROVIDERS: Visit Provider Internal Medicine Cardiovascular Disease | DX: J44.9 Chronic obstructive pulmonary disease, unspecified (principal); I25.10 Atherosclerotic heart disease of native coronary artery without angina pectoris; E78.5 Hyperlipidemia, unspecified; Z95.5 Presence of coronary angioplasty implant and graft; Z72.0 Tobacco use | CPT/HCPCS: 93798 ==

== ENCOUNTER → 2020-12-31 09:40 | Outpatient (CLI) | payer MEDICARE, SELFPAY ==
[2020-12-31 10:41] LABS: Chloride 104 mmol/L (98-107); Potassium 4.4 mmoL/L (3.5-5.1); Sodium 138 mmol/L (136-145)
[2020-12-31 10:43] LABS: Alanine Aminotransferase 58 U/L (12-78); Anion Gap 10.4 mEq/L (5-15); Aspartate Amino Transferase 55 U/L (17-59); Bilirubin,Unconjugated 0.7 mg/dL (0.0-1.1); Blood Urea Nitrogen 32 mg/dl (9-20); Carbon Dioxide 28 mmol/L (22.0-30.0); Estimated Glomerular Filt Rate 83 ml/min (>60); GFR (African American) 101 ML/MIN (>60)
[2020-12-31 10:44] LABS: Albumin Level 3.9 g/dl (3.5-5.0); Alkaline Phosphatase 78 U/L (38-126); Bilirubin,Indirect 0.7 mg/dL (0.0-0.9); Bilirubin,Total 0.7 mg/dl (0.2-1.3); Calcium 9.8 mg/dl (8.4-10.2); Chol/HDL Ratio 4.1 (1-3.5); Cholesterol 211 mg/dl (140-200); Glucose 98 mg/dl (74-100); HDL Cholesterol 52 mg/dl (40-60); Total Protein,Serum 6.6 g/dl (6.3-8.2); Triglycerides 167 mg/dl (30-150); VLDL Cholesterol 33 mg/dL (0-40)
[2020-12-31 10:55] LABS: Direct LDL Cholesterol 118.87 mg/dL (100-129)
== END ==
PROVIDERS: Visit Provider Physician Assistant
DX: I10 Essential (primary) hypertension (principal); I25.10 Atherosclerotic heart disease of native coronary artery without angina pectoris; Z79.899 Other long term (current) drug therapy
CPT/HCPCS: 36415; 80048; 80061; 80076

== ENCOUNTER → 2021-01-19 08:11 | Outpatient (CLI) | payer MEDICARE, SELFPAY ==
[2021-01-19 09:41] LABS: Coronavirus 19 IgG Antibody Negative (Negative); Coronavirus 19 IgM Antibody Negative (Negative)
== END ==
PROVIDERS: Visit Provider Ophthalmology
DX: Z01.812 Encounter for preprocedural laboratory examination (principal); Z20.822 Contact with and (suspected) exposure to COVID-19; H25.11 Age-related nuclear cataract, right eye
CPT/HCPCS: 36415; 86328

== ENCOUNTER 2021-01-20 07:28 | Day surgery (SDC) | payer MEDICARE, SELFPAY ==
[2021-01-19 10:45] VITALS: BMI 20.8
[2021-01-20] VITALS (7 sets, daily range): BP systolic 117–161; BP diastolic 59–87; PULSE 63–65; RESP 16–18; TEMP 36.1–36.4; O2SAT 99–100
== END 2021-01-20 10:58 | disposition home or self-care (01) ==
PROVIDERS: PCP Family Medicine; Visit Provider Ophthalmology
DX: H25.813 Combined forms of age-related cataract, bilateral (principal); H53.149 Visual discomfort, unspecified; I25.2 Old myocardial infarction; Z79.82 Long term (current) use of aspirin; Z72.0 Tobacco use; Z95.818 Presence of other cardiac implants and grafts; E78.5 Hyperlipidemia, unspecified; I25.10 Atherosclerotic heart disease of native coronary artery without angina pectoris; J44.9 Chronic obstructive pulmonary disease, unspecified; F32.9 Major depressive disorder, single episode, unspecified; G47.00 Insomnia, unspecified; Z79.899 Other long term (current) drug therapy
CPT/HCPCS: 66984; V2632

== ENCOUNTER 2021-02-26 14:01 | Emergency (ER) | payer MEDICARE, SELFPAY ==
[2021-02-26 14:01] VITALS: BP 148/89; PULSE 67; RESP 18; TEMP 36.8; O2SAT 98; BMI 21.4
--- NOTE | 2021-02-26 14:11 | XR_ITS ---
PROCEDURE: XR CHEST 2V CLINICAL HISTORY: soa COMPARISON: CR XR CHEST PORTABLE from 10/21/2020 CR XR CHEST 2V from 11/09/2020 FINDINGS: Prior median sternotomy. Normal heart size. COPD changes. No lobar consolidation or collapse. Chronic wedge compression changes are present at T12 IMPRESSION: COPD. No change with no acute finding Dictated by: David Cardoza MD 02/26/2021 14:43 David Cardoza MD in [place] 02/26/2021 14:43
--- NOTE | 2021-02-26 14:12 | ECG_ITS ---
APPROVED REPORT Exam: Resting ECG HR:66 bpm ECG Measurements Heart Rate 66 AXES AR 182 P 76 QRSd 116 QRS 31 QT 388 T 73 QTc 406 Conclusion Normal sinus rhythm Low voltage QRS Borderline ECG Electronically signed by : Tom Bhandari, 02/27/2021 09:07:03
--- NOTE | 2021-02-26 14:26 | HMH.EDSOB ---
ED Disposition Clinical Impression: Encounter for medical screening examination Disposition: Home, Self-Care Condition on Discharge: Good Instructions: DI for Chronic Obstructive Pulmonary Disease Referrals: Abdullahi Valenzuela MD [Primary Care Provider] - 3 days - Critical Care Critical Care Time: No Attestation: On 02/26/21, the high probability of a clinically significant, sudden or life threatening deterioration of the following system(s) required my full and direct attention, intervention and personal management. The time I documented below is in addition to time spent performing reported procedures but includes the following listed in this critical care notation. Medical Decision Making - Medical Records Medical records reviewed: Yes: I reviewed the patient's medical records. - Lonnie Inquiry Pt receiving controlled substance: No Vital Signs: 02/26/21 14:01 02/26/21 14:39 Temperature 98.3 F 98.1 F Temperature Source Oral Pulse Rate 67 Pulse Rate [Left Radial] 67 Respiratory Rate 18 20 Blood Pressure 148/89 H Blood Pressure [Right Arm] 148/89 H Blood Pressure Mean [Right Arm] 108 Blood Pressure Source [Right Arm] Automatic Cuff Blood Pressure Position [Right Arm] Sitting 02 Sat by Pulse Oximetry 98 Oxygen Delivery Method Room Air Room Air - ECG Data Tracing #1 EKG at 1412 shows normal sinus rhythm with a rate of 66. No acute ST segment elevation or depression. No hyperacute T waves. Normal intervals. EKG interpreted by me. Medical Decision Narrative: Patient denies any symptoms today that are outside his normal and in fact has no chest pain. He has no complaints and does not want further evaluation. We have had an informed discussion and used a shared decision making model. We discussed the risks of cardiopulmonary pathology including ACS, blood clot, pneumonia, COPD exacerbation, however patient states that he feels completely normal and does not want to move forward with further evaluation. In the setting of a patient who is alert and oriented x3, of appropriate decision-making capacity, and has no complaints and has a full, understandable explanation of his sweating and dyspnea from earlier today, we will not move forward with further testing at this time. Encouraged to return if he changes his mind. Resp/SOB HPI - General Chief Complaint: Shortness of Breath/Dyspnea Stated Complaint: shortness of breath Time Seen by Provider: 02/26/21 14:26 Mode of Arrival: EMS Limitations: No Limitations Description of Symptoms (Recalled from ER Triage Doc. by RN): c/o soa. Pt states that he went next door of his work place a couple times trying to change his appt. After the 2nd time he came back to work soa and sweaty. Pt denies any soa or chest pain at this time. - History of Present Illness This is a 70-year-old male with a past medical history significant for hyperlipidemia, COPD who presents to the emergency department at the request of his coworkers after being short of breath and sweaty after walking around the block several times outside. Patient was trying to change his dentist appointment so had been walking around quite a bit and was sweaty because he is wearing a long sleeve black T-shirt and long pants. It is currently 81 ?F. he has not felt any differently than normal. His coworkers were also concerned because he stumbled when he was trying to delete a text off of his phone and answer a phone call at the same time. No fall. He remembers the entire episode and was not confused, just trying to walk and look at his phone at the same time. He has not had any chest pain at all. He states that his shortness of breath is chronic and was expected/normal for his exertion today. He states that he walks about a mile and a half in the evenings and is normally short of breath just similar as he was today walking around the block several times. He denies any recent fevers or cough. He has no complaints. - R
[2021-02-26 14:39] VITALS: BP 148/89; PULSE 67; RESP 20; TEMP 36.7; O2SAT 97
== END 2021-02-26 14:54 | disposition home or self-care (01) ==
PROVIDERS: Emergency Provider Emergency Medicine; PCP Family Medicine
DX: R06.02 Shortness of breath (principal); J44.9 Chronic obstructive pulmonary disease, unspecified; E78.5 Hyperlipidemia, unspecified; I25.10 Atherosclerotic heart disease of native coronary artery without angina pectoris; I25.2 Old myocardial infarction; F17.210 Nicotine dependence, cigarettes, uncomplicated; Z79.899 Other long term (current) drug therapy
CPT/HCPCS: 71046; 93005; 99282

== ENCOUNTER → 2021-03-28 10:38 | Outpatient (CLI) | payer MEDICARE, SELFPAY | PROVIDERS: Visit Provider Ophthalmology | DX: Z01.812 Encounter for preprocedural laboratory examination (principal); Z20.822 Contact with and (suspected) exposure to COVID-19 | CPT/HCPCS: U0003 ==

== ENCOUNTER 2021-03-31 06:45 | Day surgery (SDC) | payer MEDICARE, SELFPAY ==
[2021-03-26 12:57] VITALS: BMI 20.6
[2021-03-31 07:00] VITALS: BP 159/86; PULSE 63; RESP 18; TEMP 36.5; O2SAT 94
[2021-03-31 08:12] VITALS: BP 146/86; PULSE 58; RESP 18; O2SAT 100
[2021-03-31 08:17] VITALS: BP 139/86; PULSE 60; RESP 18; O2SAT 100
[2021-03-31 08:22] VITALS: BP 141/81; PULSE 59; RESP 18; O2SAT 100
[2021-03-31 08:27] VITALS: BP 138/85; PULSE 59; RESP 18; O2SAT 100
[2021-03-31 08:30] VITALS: BP 133/82; PULSE 64; RESP 16; TEMP 36.4; O2SAT 100
== END 2021-03-31 08:54 | disposition home or self-care (01) ==
LOC: OR 06:47
PROVIDERS: PCP Family Medicine; Visit Provider Ophthalmology
DX: H25.813 Combined forms of age-related cataract, bilateral (principal); H53.149 Visual discomfort, unspecified; Z79.82 Long term (current) use of aspirin; E78.5 Hyperlipidemia, unspecified; I25.10 Atherosclerotic heart disease of native coronary artery without angina pectoris; J44.9 Chronic obstructive pulmonary disease, unspecified; F32.9 Major depressive disorder, single episode, unspecified; Z79.899 Other long term (current) drug therapy
CPT/HCPCS: 66984; V2632

== ENCOUNTER → 2021-04-27 13:30 | Outpatient (CLI) | payer MEDICARE, SELFPAY ==
--- NOTE | 2021-04-27 13:31 | CA_ITS ---
APPROVED REPORT EXAM: Comprehensive 2D, Doppler, and color-flow Echocardiogram Service Representative: Tonya Ly RVT Ht: 5 ft 9 in Wt: 144lbs BSA: 1.80 BP: 136/86 mmHg Indications: SOA,CAD,CM,COPD,HTN 2D Dimensions LVOT 2.11 cm (M/F) 1.5-2.5 LA Volume 13.40 mL LA Volume Index 7.48 mL/m2 (M/F) 16-34 M-Mode Dimensions RVDd 3.25 cm (0.9-2.6) LA Diam 2.81 cm (1.9-4.0) LVDd 3.53 cm (3.5-5.7) Ao Diam 3.36 cm (2.0-3.7) IVSd 0.50 cm (0.6-1.1) PWd 0.60 cm (0.6-1.1) EF (Teich) 54.30% TAPSE 1.45 (<1.7) LV Diastology E Decel Time 293.00 (160-240 msec) E/A Ratio 0.8 MED E' 9.90 (< 7 cm/sec) E'/MED E' Ratio 6.89 (>14) LAT E' 13.20 (<10 cm/sec) E/LAT E' Ratio 5.17 (>14) Aortic Valve AO Peak GR. 4.10 mmHg Mitral Valve MV E Max Bigg. 68.00 (40-130 cm/s) MV A Velocity 83.00 (40-130 cm/s) E/A Ratio 0.82 MV Decel. Time 293.00 (160-240 ms) MV PHT 86.00 ms Pulmonary Valve PV Peak Velocity 90.00 (50-150 cm/s) Tricuspid Valve TR P. Velocity 219.00 cm/s RAP Estimate 10.00 mmHg RVSP 29.30 mmHg Left Ventricle Technically difficult study because of the patient fact in poor acoustic windows. Left atrium is mildly enlarged, left ventricle is normal size, mild concentric left ventricular hypertrophy, visually estimated ejection fraction 55% with no regional wall motion abnormality, endocardial surfaces are very poorly visualized. Diastolic parameters are inconclusive. Right Ventricle Right atrium and right ventricle mildly enlarged with normal contractility. Aortic Valve Aortic valve is minimally thickened and fibrosed, there is no aortic stenosis or aortic insufficiency. Mitral Valve Mitral valve grossly normal, there is mild mitral regurgitation. Tricuspid Valve Tricuspid grossly normal, there is mild tricuspid regurgitation, calculated right ventricular systolic pressure is 28 mmHg. Pulmonic Valve Pulmonic valve is poorly visualized. Great Vessels Aortic root is normal size. Pericardium No significant pericardial effusion noted. Conclusion 1. Technically difficult study because of the patient factors and poor acoustic windows 2. Normal left ventricular size, mild concentric left ventricular hypertrophy, preserved left ventricular systolic function, visually estimated ejection fraction 55% with no regional wall motion abnormality, endocardial surfaces are poorly visualized. Diastolic parameters are inconclusive. 3. Mild mitral and tricuspid regurgitation. Calculated right ventricular systolic pressure 28 mmHg. 4. No significant pericardial effusion noted. Electronically signed by : Eric Abdi, 04/27/2021 22:08:12
== END ==
PROVIDERS: PCP Family Medicine; Visit Provider Internal Medicine
DX: I25.5 Ischemic cardiomyopathy (principal)
CPT/HCPCS: 93306

== ENCOUNTER → 2021-10-02 07:01 | Outpatient (CLI) | payer MEDICARE, SELFPAY ==
--- NOTE | 2021-10-02 07:03 | CT_ITS ---
PROCEDURE: CT LUNG SCREENING CLINICAL INDICATION: lung cancer screening COMPARISON: CR XR CHEST 2V from 11/09/2020 TECHNIQUE: The exam was performed on a GE Light Speed [address] scanner using 2.90 mGy CTDI. A low dose helical CT CHEST was performed on a multi-detector scanner. All CT scans at the facility use one or more dose reduction, viz: automated exposure control, ma/kV adjustment per patient size (including targeted exams where dose is matched to indication, i.e. head), or iterative reconstruction technique. The LDCT was performed in a facility that meets the criteria for the screening program. Data regarding this exam was submitted to ACR which is an approved registry. The order for this exam indicates that it came as a result of a lung cancer screening counseling shard decision-making visit that included all the elements required of such a visit including smoking cessation. The radiologist interpreting this exam meets the CMS criteria for the LDCT lung cancer screening program. The exam is reported using the Lung-RADS classification scale and reported to the ACR registry. NOTE: This study was performed for the specific purposes of lung cancer screening and is not an alternative to diagnostic chest CT. RADIATION DOSE: CTDI vol(CT dose Index-volume) = 2.90mG DLP (Dose Length Product) = 111.51 mGcm FINDINGS: COPD with centrilobular emphysema and scattered areas of scarring. Prominent interstitial changes are present in the right lower lobe concerning for developing pulmonary fibrosis. No suspicious nodule identified. No effusions or infiltrates. Coronary artery stents and or calcification noted OTHER FINDINGS: There is an area of decreased attenuation within the left kidney laterally measuring 1.6 cm which may represent a renal cyst. Additional 1.3 cm exophytic hypodensity of the left kidney suggesting a renal cyst. Nonobstructing 2 mm stone mid polar region right kidney posteriorly. Small periportal lymph nodes. Prior CABG. Wedge compression changes are present at L1 with loss of height anteriorly of approximately 50 percent and minimal retropulsion of the posterior superior aspect of L1 this was present on 11/09/2020 radiograph IMPRESSION: Lung-RADS Category 1 Negative Follow-up: Continue annual screening with LDCT in 12 months Other nonacute findings as described above. COPD with centrilobular emphysema and scattered areas of scarring with suspected developing pulmonary fibrosis in the right lower lobe Dictated by: David Cardoza MD 10/09/2021 11:37 David Cardoza MD in [place] 10/09/2021 11:37
== END ==
PROVIDERS: PCP Family Medicine; Visit Provider Internal Medicine Pulmonary Disease
DX: Z87.891 Personal history of nicotine dependence (principal); Z12.2 Encounter for screening for malignant neoplasm of respiratory organs; R06.09 Other forms of dyspnea
CPT/HCPCS: 71271; 94060; 94726; 94729

== ENCOUNTER → 2022-04-30 07:09 | Outpatient (CLI) | payer MEDICARE, SELFPAY ==
--- NOTE | 2022-04-30 | CA_ITS ---
APPROVED REPORT Exam: Exercise Treadmill Technologist: Frannie Harper, Ht: 5 ft 9 in Wt: 128 lbs BSA: 1.71 m2 HR: 59 bpm BP: 168/73 mmHg Medical History Medical History: Hyperlipidemia Medications: Aspirin,,,,, Losartan,,,,, CiALIS,,,,, Triazolam,,,,, Trelegy,,,,, NeBivolol,,,,, Cardiac Risk Factors: Hyperlipidemia, Smoking Stress Test Details Test: Pasquale HR Resting HR: 57 bpm Max Heart Rate (APMHR): 149 bpm Max HR Achieved: 132 bpm Target HR (85% APMHR): 127 bpm % of APMHR: 89 Recovery HR: 97 bpm BP Resting BP: 166/81 mmHg Max BP: 192/99 mmHg Recovery BP: 192.0/83.0 mmHg ECG Clinical Exercise duration: 07:41 min Highest Stage Achieved: Exercise capacity: 10.1 METs Stress ECG Conclusion No arrhtyhmias noted. <1.5mm ST changes. Test Summary Stage 2 02:00 12.0 2.5 94 . . . . REST . . . . . . . Sitting REST . . . . . . . Standing REST 10:30 0.0 0.0 57 . 166/ 81 . . Stage 1 01:00 10.0 1.7 68 . . . . Stage 1 02:00 10.0 1.7 81 . . . . Stage 1 03:00 10.0 1.7 82 . 173/ 85 . . Stage 2 01:00 12.0 2.5 87 . . . . Stage 2 02:00 12.0 2.5 94 . . . . Stage 2 03:00 12.0 2.5 97 . 180/ 90 . . Stage 3 01:00 14.0 3.4 106 . . . . Stage 3 01:41 14.0 3.4 108 . . . Stop exercise at 07:41 RECOVERY 01:00 0.0 0.0 95 . . . . RECOVERY 02:00 0.0 0.0 82 . . . . RECOVERY 03:00 0.0 0.0 77 . 181/ 84 . . RECOVERY 04:00 0.0 0.0 69 . 192/ 99 . . RECOVERY 04:39 0.0 0.0 71 . 169/ 85 . . Electronically signed by : Eric Abdi MD 04/30/2022 14:28:43
--- NOTE | 2022-04-30 07:15 | NM_ITS ---
APPROVED REPORT Exam: Nuclear Stress Test Indication: chest pain..short of breath..fatigue Patient Location: Outpatient Stress Tech: Frannie Harper [place] Tech:Irasema KilgoreMARTIN RT(R)(N) Ht: 5 ft 9 in Wt: 127 lbs HR: 57 bpm BP: 166/81 mmHg BSA: 1.70 m2 TID: 1.02 BMI: 18.7 History: chest pain..short of breath..fatigue Procedure: Patient exercised on Pasquale protocol 7:41 minutes and sec, resting heart rate 57 bpm, resting blood pressure 166/81 mmHg, with exercise maximum heart rate achived was 132 bpm which is 89 % of the maximum predicted heart rate and blood pressure was 192/99 mmHg. Patient denied any complaint of chest pain. Patient has good exercise capacity, achieved 10.0 METs of workload on treadmill, the blood pressure response to exercise was Adequate. Electrocardiogram Resting electrocardiogram shows sinus rhythm, with exercise there is less than 1.[address] segment depression noted from the baseline EKG. The EKG portion of the exercise Myoview is negative for ischemia. Cardiac Stress and Resting SPECT Images: Cardiac Stress and Resting SPECT images were obtained using technetium 99m Myoview 32.9 mCi stress and 10.91 mCi at rest. Gated SPECT analysis of segmental wall motion and calculation of the ejection fraction also done. Cardiac stress and rest SPECT images show uniform myocardial activity without segmental perfusion abnormality, computer derived ejection fraction is 48% with no regional wall motion abnormality, right ventricle is normal size and contractility. Conclusion: 1. The EKG portion of the exercise Myoview is negative for ischemia, patient has a good exercise capacity achieved 10 METS of workload treadmill, the blood pressure response to exercise was adequate, there was no exercise-induced chest discomfort. 2. No scintigraphic evidence of reversible ischemia seen, compared to ejection fraction is 48% with no regional wall motion abnormality, right ventricle is normal size and contractility. 3. Normal exercise Myoview study. Electronically signed by : Eric Abdi MD 04/30/2022 14:38:21
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
== END ==
PROVIDERS: PCP Family Medicine; Visit Provider Nurse Practitioner
DX: I25.10 Atherosclerotic heart disease of native coronary artery without angina pectoris (principal); R07.9 Chest pain, unspecified; R06.02 Shortness of breath
CPT/HCPCS: 78452; 93017; 93306; A9502

== ENCOUNTER → 2022-05-14 14:00 | Outpatient (CLI) | payer MEDICARE, SELFPAY ==
[2022-05-14 17:29] LABS: Basophils # 0.1 K/mm3 (0-0.2); Basophils % 1.2 % (0.1-2.0); Eosinophils # 0.2 K/mm3 (0.0-0.4); Hematocrit 45.2 % (42.0-52.0); Hemoglobin 14.6 g/dL (14.1-18.0); Lymphocytes # 1.7 K/mm3 (0.7-4.5); Mean Corpuscular HGB Conc 32.4 g/dL (31.8-35.4); Mean Corpuscular Hemoglobin 32.9 pg (27.0-31.2); Mean Corpuscular Volume 101.5 fl (80-94); Mean Platelet Volume 8.4 fl (7.4-10.4); Monocytes # 0.4 K/mm3 (0.1-1.0); Neutrophils # 4.9 K/mm3 (1.8-7.8); Neutrophils % 66.9 % (37.0-80.0); Platelet Count 311 K/mm3 (142-424); Red Blood Count 4.45 M/mm3 (4.60-6.20); Red Cell Distribution Width 13.1 % (11.5-17.5); White Blood Count 7.3 K/mm3 (4.8-10.8)
[2022-05-14 17:47] LABS: Alanine Aminotransferase 50 U/L (12-78); Albumin Level 3.7 g/dl (3.5-5.0); Albumin/Globulin Ratio 1.4 (1.1-1.8); Alkaline Phosphatase 85 U/L (38-126); Anion Gap 8.3 mEq/L (5-15); Aspartate Amino Transferase 52 U/L (17-59); Bilirubin,Total 0.5 mg/dl (0.2-1.3); Blood Urea Nitrogen 20 mg/dl (9-20); Calcium 8.9 mg/dl (8.4-10.2); Carbon Dioxide 25 mmol/L (22.0-30.0); Chloride 107 mmol/L (98-107); Estimated Glomerular Filt Rate 111 ml/min (>60); GFR (African American) 135 ML/MIN (>60); Globulin 2.7 g/dL (1.3-3.2); Glucose 99 mg/dl (74-100); Potassium 4.3 mmoL/L (3.5-5.1); Sodium 136 mmol/L (136-145); Total Protein,Serum 6.4 g/dl (6.3-8.2)
[2022-05-14 17:53] LABS: Hemoglobin A1C 5.4 % (4.0-6.0)
[2022-05-14 18:03] LABS: T4 (Thyroxine) 7.9 ug/dl (5.53-11.0)
[2022-05-14 18:17] LABS: Thyroid Stimulating Hormone 0.69 uIU/mL (0.465-4.68)
[2022-05-21 09:14] LABS: Testosterone, Total, LC/MS 925 ng/dL (.)
== END ==
PROVIDERS: PCP Family Medicine; Visit Provider Family Medicine
DX: R53.83 Other fatigue (principal); Z00.00 Encounter for general adult medical examination without abnormal findings; Z12.5 Encounter for screening for malignant neoplasm of prostate; Z79.899 Other long term (current) drug therapy
CPT/HCPCS: 80053; 83036; 84403; 84436; 84443; 85025; G0103

== ENCOUNTER → 2022-06-03 07:42 | Outpatient (CLI) | payer MEDICARE, SELFPAY ==
--- NOTE | 2022-06-03 07:42 | CT_ITS ---
FINAL REPORT TECHNIQUE: Thin section axial images were obtained from the lung bases to the pubic symphysis without IV contrast. Coronal reconstruction images were obtained from the axial data. Exam was performed using dose reduction technique. CLINICAL HISTORY: abd pain, weightloss FINDINGS: There are no obstructing renal or ureteral stones. There is a nonobstructing right renal stone. Bilateral hypodense renal lesions may be cysts but cannot be completely characterized. There is no hydronephrosis or perinephric stranding. The gallbladder surgically absent. The remaining unenhanced solid abdominal organs are unremarkable. There is no evidence of small bowel obstruction. The appendix is not visualized. There is an area of narrowing at the hepatic flexure which could be related to peristalsis, mass not excluded. There is diverticulosis without evidence of diverticulitis. The prostate is very large. There is wall thickening of the urinary bladder. Calcifications in the bladder are favored to represent bladder stones although wall calcifications are not excluded. There is no lymphadenopathy or ascites. There is a chronic compression fracture of L1. There are changes of kyphoplasty at L4. IMPRESSION: 1. Nonobstructing right renal stone and bladder stones. 2. Enlarged prostate, correlate with PSA. 3. Focal wall thickening at the hepatic flexure could be related to peristalsis but neoplasm is not excluded. Recommend correlation with any recent colonoscopy are recommend CT with IV and oral contrast. Reviewed, Interpreted and Dictated by Erin Jara MD Transcribed by Larisa Saenz Authenticated and [facility]
--- NOTE | 2022-06-03 07:42 | CT_ITS ---
FINAL REPORT TECHNIQUE: Thin section axial images were obtained from the lung apices through the upper abdomen without contrast. This study was performed with techniques to keep radiation doses as low as reasonably achievable (ALARA). Individualized dose reduction techniques using automated exposure control or adjustment of mA and/or kV according to the patient's size were employed. CLINICAL HISTORY: abn weight loss, smoker COMPARISON: October 02, 2021 FINDINGS: There is no mediastinal, hilar, or axillary lymphadenopathy. There is no pleural or pericardial effusion. There are changes of emphysema. There is linear atelectasis or scarring in the lingula. There is a new 11 mm spiculated nodule in the left upper lobe well seen on image 17. There is a new 4 mm nodule in the left upper lobe seen on image 29 and a new 6 mm right lower lobe nodule seen on image 58. There is a chronic L1 compression fracture. There is no acute bony abnormality. IMPRESSION: New bilateral pulmonary nodules, left upper lobe nodule is particularly worrisome for malignancy. Recommend PET-CT. Reviewed, Interpreted and Dictated by Erin Jara MD Transcribed by Larisa Saenz Authenticated and . [facility]
== END ==
PROVIDERS: PCP Family Medicine; Visit Provider Family Medicine
DX: R10.9 Unspecified abdominal pain (principal); F17.200 Nicotine dependence, unspecified, uncomplicated; R63.4 Abnormal weight loss
CPT/HCPCS: 71250; 74176

== ENCOUNTER 2023-02-09 09:42 | Emergency (ER) | payer MEDICARE, SELFPAY ==
[2023-02-09] VITALS (10 sets, daily range): BP systolic 133–203; BP diastolic 61–108; PULSE 61–70; RESP 18–19; TEMP 35.9–36.6; O2SAT 96–99; BMI 21.4
--- NOTE | 2023-02-09 09:52 | ECG_ITS ---
APPROVED REPORT Exam: Resting ECG HR:61 bpm ECG Measurements Heart Rate 61 AXES WA 179 P 79 QRSd 119 QRS 21 QT 410 T 76 QTc 414 Conclusion SINUS RHYTHM NORMAL ECG UNCONFIRMED REPORT Electronically signed by : Tom Bhandari MD 02/09/2023 21:19:02
--- NOTE | 2023-02-09 09:53 | PC.NURSE ---
Dr. Gonzalez at BS for pt eval
--- NOTE | 2023-02-09 09:56 | CT_ITS ---
FINAL REPORT TECHNIQUE: thin section axial CT with and without IV contrast supplemented with multiplanar 3-D reconstruction of the head. This study was performed with techniques to keep radiation doses as low as reasonably achievable, (ALARA)individualized dose reduction techniques using automated exposure control or adjustment of mA and/or kV according to the patient's size were employed. CLINICAL HISTORY: confusion cva COMPARISON: None FINDINGS: HEAD CT: The ventricles are normal in size. There is no evidence of hemorrhage. No masses are identified. No extra-axial fluid is seen. The sinuses are normal. There are small nodules in both lobes of the thyroid measuring less than 1 cm. Lung apices demonstrate a spiculated mass at the left apex measuring 9 mm seen on image 27 of series 5. Advanced changes of degenerative disc disease at C5-6 with bilateral neural foraminal narrowing. CTA: The carotid bifurcations are widely patent bilaterally. Vertebral arteries are patent. Right vertebral artery is the dominant posterior circulation vessel. There is no evidence of large vessel occlusion. Normal intracranial branching pattern seen. There are patent posterior communicating arteries bilaterally, more evident on the right than left. IMPRESSION: No significant carotid stenosis. No intracranial large vessel occlusion. 9 mm spiculated mass at the left apex is indeterminate. May consider chest CT for further evaluation. Reviewed, Interpreted and Dictated by Ashu Nix MD Transcribed by Kacey Peñaloza Authenticated and . [facility]
--- NOTE | 2023-02-09 09:56 | PC.NURSE ---
Jimena called Radiology to let them know this was a stroke protocol
--- NOTE | 2023-02-09 09:56 | CT_ITS ---
FINAL REPORT TECHNIQUE: NASCET technique utilized for stenosis evaluation. CLINICAL HISTORY: confusion cva COMPARISON: None FINDINGS: Small nodules are noted in both lobes of the thyroid measuring less than 1 cm. Lung apices demonstrate spiculated mass at the left apex measuring 9 mm seen on image 27 of series 5. The carotid bifurcations are widely patent bilaterally. Vertebral arteries are patent. Right vertebral artery is the dominant posterior circulation vessel. There is no evidence of large vessel occlusion. IMPRESSION: No significant carotid stenosis. 9 mm spiculated mass at the left apex is indeterminate. May consider chest CT for further evaluation. Reviewed, Interpreted and Dictated by Ashu Nix MD Transcribed by Kacey Peñaloza Authenticated and [facility]
--- NOTE | 2023-02-09 09:57 | CT_ITS ---
FINAL REPORT CLINICAL HISTORY: confusion, poss cva, FINDINGS: Axial images of the head were obtained without contrast. Coronal reformatted images were also obtained. This study was performed with techniques to keep radiation doses as low as reasonably achievable (ALARA). Individualized dose reduction techniques using automated exposure control or adjustment of mA and/or kV according to the patient's size were employed. There is generalized age-appropriate atrophy. Periventricular low-attenuation areas are seen consistent with mild chronic ischemic changes. There is no evidence of intracranial hemorrhage or mass. There is no evidence of acute infarct. There is no evidence of shift of the midline structures. No skull abnormality is seen on the bone window images. The paranasal sinuses are well aerated. IMPRESSION: Atrophy and mild periventricular chronic ischemic changes. No acute intracranial abnormality identified. Reviewed, Interpreted and Dictated by Ashu Nix MD Transcribed by Lori Bernard Authenticated and [facility]
--- NOTE | 2023-02-09 09:57 | XR_ITS ---
FINAL REPORT CLINICAL HISTORY: Shortness of breath COMPARISON: 02/26/2021 FINDINGS: The heart size is normal. Sternotomy wires are present. There are moderate chronic interstitial opacities at the bases. There is no focal infiltrate or edema. There are no pleural effusions. There is no pneumothorax. There is no osseous abnormality. IMPRESSION: No acute cardiopulmonary process. Reviewed, Interpreted and Dictated by Ashu Nix MD Transcribed by Kacey Peñaloza Authenticated and [facility]
--- NOTE | 2023-02-09 09:59 | PC.WOUNDNOTE ---
PT TO CT FOR STROKE PROTOCOL
--- NOTE | 2023-02-09 10:15 | HMH.EDGENADL ---
Discharge Plan Disposition Patient Disposition: Home, Self-Care Prescriptions Prescriptions: New doxycycline hyclate 100 mg capsule 100 mg PO BID Qty: 7 0RF No Action Repatha SureClick 140 mg/mL pen injector 140 mg SQ Q2W Qty: 2 11RF cyanocobalamin (vitamin B-12) 1,000 mcg/mL solution 1,000 mcg SQ QWEEK Qty: 10 5RF Rx Instructions: inject 1ml once a week for 3 months, then after that inject 1ml every month (DME) BD Eclipse 25 gauge x 1 needle See Rx Instructions .Route Qty: 100 0RF Rx Instructions: as directed losartan 100 mg tablet See Rx Instructions .ROUTE .COMPLEX Qty: 90 2RF Dose Instruction: TAKE ONE TABLET BY MOUTH ONCE DAILY Rx Instructions: TAKE ONE TABLET BY MOUTH ONCE DAILY Trelegy Ellipta 100-62.5-25 mcg blister with device 1 inh INHALATION DAILY 90 Days Qty: 90 3RF triazolam 0.25 mg tablet 0.25 mg PO HS PRN (Reason: sleep) Qty: 30 5RF aspirin 81 MG tablet,delayed release (DR/EC) 81 mg PO DAILY Referrals Follow up/Referrals: Abdullahi Valenzuela MD [Primary Care Provider] - See instructions Activity Restrictions/Add. Instructions Additional Instructions/Restrictions: Follow-up with your primary care physician within the next few days. Consider checking blood pressure each day and reporting a log to your primary care physician to see if adjustments need to be made. Clinical Impressions Clinical Impression: Pneumonia Discharge ED Provider: Rod Gonzalez General Adult HPI General Chief complaint: Weakness Stated complaint: Dizzy, weak Time Seen by Provider: 02/09/23 09:45 Mode of Arrival: Ambulatory Limitations: No Limitations Description of Symptoms (Recalled from ER Triage Doc. by RN): PT C/O DIZZINESS THAT BEGAN THIS AM, STATES HE FEELS LIKE HE IS UNABLE TO SQUEEGEE TENDER HIS DISTANCE. VISITOR WITH PT REPORTS PT IS TALKING SLOWER THAN USUAL History of Present Illness HPI narrative: 72-year-old male with history of hypertension ischemic cardiomyopathy coronary artery disease COPD presents with dizziness since this morning. He is unable to determine if it started upon waking or this morning when his friend arrived and saw him at 630 he was confused. He was using a make-believe phone. He now complains of dull headache no numbness weakness or tingling arms or legs. No vision changes. Headache was not sudden onset or severe in nature. No neck stiffness. No fever or chills. He has chronic cough per patient. He feels more dizzy with sitting up. Related Data Home Medications Medication Instructions Recorded Confirmed aspirin 81 mg tablet,delayed 81 mg PO DAILY Heart 10/22/20 09/23/22 release Previous Rx's Medication Instructions Recorded safety needles 25 gauge x 1 (BD #100 ea 05/21/22 Eclipse) evolocumab 140 mg/mL subcutaneous 140 mg SQ Q2W #2 mL 05/27/22 pen injector (Juliann SureEdick) losartan 100 mg tablet See Rx Instructions .Route 07/28/22 .COMPLEX #90 tabs fluticasone fur. 100 mcg-umeclid 1 inh inhalation DAILY 90 days #90 09/10/22 62.5 mcg-vilant 25 mcg ea inhalat.powder (Trelegy Ellipta) cyanocobalamin (vitamin B-12) 1,000 mcg SQ QWEEK vitamin B12 09/23/22 1,000 mcg/mL injection solution deficiency #10 mL triazolam 0.25 mg tablet 0.25 mg PO HS PRN sleep #30 tabs 10/15/22 doxycycline hyclate 100 mg capsule 100 mg PO BID #7 caps 02/09/23 Allergies Allergy/AdvReac Type Severity Reaction Status Date / Time [id number] Reductase AdvReac Mild myalgia Verified 09/23/22 10:30 Inhibitor [facility] Disclaimer: The information contained in this section may have been updated after the patient was seen, as this information can be updated by other users. Medical History Dyspnea Ischemic cardiomyopathy Sinus bradycardia Social History Smoking Status: Current every day smoker tobacco type: cigarettes p
--- NOTE | 2023-02-09 10:22 | PC.NURSE ---
PT RETURNED FROM CT
[2023-02-09 10:24] LABS: Basophils # 0.1 K/mm3 (0-0.2); Eosinophils # 0.3 K/mm3 (0.0-0.4); Eosinophils % 4.6 % (0.1-12.0); Hematocrit 48.1 % (42.0-52.0); Hemoglobin 15.6 g/dL (14.1-18.0); Lymphocytes # 1.6 K/mm3 (0.7-4.5); Lymphocytes % 22.8 % (10-50); Mean Corpuscular HGB Conc 32.5 g/dL (31.8-35.4); Mean Corpuscular Hemoglobin 31.8 pg (27.0-31.2); Mean Corpuscular Volume 97.8 fl (80-94); Mean Platelet Volume 7.6 fl (7.4-10.4); Monocytes # 0.4 K/mm3 (0.1-1.0); Monocytes % 5.6 % (1.7-9.3); Neutrophils # 4.7 K/mm3 (1.8-7.8); Platelet Count 351 K/mm3 (142-424); Red Blood Count 4.92 M/mm3 (4.60-6.20); Red Cell Distribution Width 12.7 % (11.5-17.5); White Blood Count 7.1 K/mm3 (4.8-10.8)
--- NOTE | 2023-02-09 10:27 | PC.NURSE ---
B/P 176/96 BEFORE HYDRALAZINE
[2023-02-09 10:32] LABS: Chloride 96 mmol/L (98-107); Potassium 3.7 mmoL/L (3.5-5.1); Sodium 138 mmol/L (136-145)
[2023-02-09 10:34] LABS: Alanine Aminotransferase 27 U/L (12-78); Aspartate Amino Transferase 39 U/L (17-59); Blood Urea Nitrogen 25 mg/dl (9-20); Creatinine Clearance Estimated 62 mL/min (50-200); Estimated Glomerular Filt Rate 83 ml/min (>60); GFR (African American) 100 ML/MIN (>60)
[2023-02-09 10:35] LABS: Albumin Level 3.7 g/dl (3.5-5.0); Albumin/Globulin Ratio 1.1 (1.1-1.8); Alkaline Phosphatase 78 U/L (38-126); Anion Gap 10.7 mEq/L (5-15); Bilirubin,Total 0.6 mg/dl (0.2-1.3); Calcium 8.8 mg/dl (8.4-10.2); Carbon Dioxide 35 mmol/L (22.0-30.0); Globulin 3.3 g/dL (1.3-3.2); Glucose 129 mg/dl (74-100); Magnesium 1.9 mg/dl (1.6-2.3)
--- NOTE | 2023-02-09 10:47 | PC.NURSE ---
Rounded on patient; pt is resting on ed stretcher. He woke up while i was in the room and reports no needs. Call light within reach
[2023-02-09 10:48] LABS: Troponin I < 0.01 ng/ml (0.00-0.034)
[2023-02-09 10:53] LABS: POC Glucose,Bedside 139 (70-110)
--- NOTE | 2023-02-09 10:58 | CT_ITS ---
FINAL REPORT TECHNIQUE: Axial images were obtained through the chest without contrast. This study was performed with techniques to keep radiation doses as low as reasonably achievable (ALARA). Individualized dose reduction techniques using automated exposure control or adjustment of mA and/or kV according to the patient's size were employed. CLINICAL HISTORY: left apex mass known smoker COMPARISON: 06/03/2022 FINDINGS: There are few small scattered mediastinal lymph nodes. There is moderate vascular calcification of the coronary arteries. There is a vertical, spiculated noncalcified density at the left apex well seen on image 59 of series 1001. Allowing for differences in slice selection, this appears similar to prior. There are moderate changes of centrilobular emphysema bilaterally. There is patchy airspace opacity in the right middle lobe and right lower lobe, probably due to acute pneumonia. The heart size is normal. There is no pericardial or pleural effusion. Limited images of the upper abdomen are unremarkable. IMPRESSION: Stable density at the left apex, favor postinflammatory. Recommend follow-up in 1 year to ensure continued stability. Right middle lobe and right lower lobe pneumonia. Reviewed, Interpreted and Dictated by Ashu Nix MD Transcribed by Lori Bernard Authenticated and [facility]
[2023-02-09 11:01] LABS: Microscopic, Urine URINE MICROSCOPIC (MICROSCOPIC)
[2023-02-09 11:06] LABS: Appearance,Urine SL CLOUDY (Clear); Bilirubin,Urine Negative (Negative); Blood, Urine TRACE-I (Negative); Color,Urine YELLOW (Yellow); Glucose,Urine (UA) Negative (Negative); Ketones,Urine Negative (Negative); Leukocyte Esterase,Urine TRACE (Negative); Nitrate,Urine Negative (Negative); PH,Urine 8.5 (5.0-8.5); Protein,Urine TRACE (Negative); Urobilinogen,Urine 0.2 EU/dl (0.2)
[2023-02-09 11:06] LABS: Thyroid Stimulating Hormone 1.28 uIU/mL (0.465-4.68)
[2023-02-09 11:28] LABS: Amorphous Sediment,Urine 1+ /lpf; Bacteria,Urine 1+ /lpf; RBC,Urine Occasional #/hpf (0-3); Squamous Epithelial Cell,Urine Occasional #/hpf (0-5)
--- NOTE | 2023-02-09 11:41 | PC.NURSE ---
ROUNDED ON PT, NO NEEDS AT THIS TIME. CALL LIGHT WITHIN REACH
--- NOTE | 2023-02-09 11:49 | PC.NURSE ---
rounded on pt no complaints at this time,call light at bs
--- NOTE | 2023-02-09 12:12 | PC.NURSE ---
Dr. Gonzalez at to go over results/POC
--- NOTE | 2023-02-09 12:12 | PC.NURSE ---
DR SEBASTIAN AT BEDSIDE TO UPDATE PT ON POC
== END 2023-02-09 12:29 | disposition home or self-care (01) ==
PROVIDERS: Emergency Provider Emergency Medicine; PCP Family Medicine
DX: J18.9 Pneumonia, unspecified organism (principal); J44.9 Chronic obstructive pulmonary disease, unspecified; R42 Dizziness and giddiness; F17.210 Nicotine dependence, cigarettes, uncomplicated
CPT/HCPCS: 70450; 70496; 70498; 71045; 71250; 80053; 81001; 82962; 83735; 84443; 84484; 85025; 93005; 96374; 99285; Q9967

== ENCOUNTER 2023-12-05 09:50 | Outpatient (CLI) | payer MEDICARE, SELFPAY ==
[2023-12-05 10:12] LABS: Basophils % 0.3 % (0.1-2.0); Eosinophils # 0.3 K/mm3 (0.0-0.4); Eosinophils % 2.5 % (0.1-12.0); Hematocrit 47.1 % (42.0-52.0); Lymphocytes # 2.5 K/mm3 (0.7-4.5); Lymphocytes % 24.3 % (10-50); Mean Corpuscular HGB Conc 33.9 g/dL (31.8-35.4); Mean Corpuscular Hemoglobin 32.9 pg (27.0-31.2); Mean Corpuscular Volume 96.8 fl (80-94); Mean Platelet Volume 7.8 fl (7.4-10.4); Monocytes # 0.8 K/mm3 (0.1-1.0); Monocytes % 7.9 % (1.7-9.3); Neutrophils # 6.8 K/mm3 (1.8-7.8); Platelet Count 346 K/mm3 (142-424); Red Blood Count 4.87 M/mm3 (4.60-6.20); Red Cell Distribution Width 13.4 % (11.5-17.5); White Blood Count 10.5 K/mm3 (4.8-10.8)
[2023-12-05 10:46] LABS: Chloride 104 mmol/L (98-107)
[2023-12-05 10:47] LABS: Potassium 3.3 mmoL/L (3.5-5.1); Sodium 138 mmol/L (136-145)
[2023-12-05 10:49] LABS: Alanine Aminotransferase 28 U/L (12-78); Albumin Level 4.2 g/dl (3.5-5.0); Alkaline Phosphatase 74 U/L (38-126); Anion Gap 5.3 mEq/L (5-15); Aspartate Amino Transferase 42 U/L (17-59); Bilirubin,Direct 0.3 mg/dl (0.0-0.4); Bilirubin,Indirect 0.4 mg/dL (0.0-0.9); Bilirubin,Total 0.7 mg/dl (0.2-1.3); Bilirubin,Unconjugated 0.4 mg/dL (0.0-1.1); Blood Urea Nitrogen 20 mg/dl (9-20); Carbon Dioxide 32 mmol/L (22.0-30.0); Cholesterol 254 mg/dl (140-200); Estimated Glomerular Filt Rate 73 ml/min (>60); GFR (African American) 89 ML/MIN (>60); Total Protein,Serum 7.2 g/dl (6.3-8.2); Triglycerides 106 mg/dl (30-150); VLDL Cholesterol 21 mg/dL (0-40)
[2023-12-05 10:50] LABS: Calcium 9.6 mg/dl (8.4-10.2); Glucose 91 mg/dl (74-100); Magnesium 2.2 mg/dl (1.6-2.3)
[2023-12-05 11:06] LABS: Direct LDL Cholesterol 139.86 mg/dL (100-129); Free T4 (Free Thyroxine) 0.99 ng/dl (0.78-2.19)
[2023-12-05 11:21] LABS: Thyroid Stimulating Hormone 1.93 uIU/mL (0.465-4.68)
[2023-12-05 14:31] LABS: Chol/HDL Ratio 4.6 (1-3.5); HDL Cholesterol 55 mg/dl (40-60)
== END 2023-12-05 23:59 ==
LOC: LAB 09:51
PROVIDERS: PCP Family Medicine; Visit Provider Nurse Practitioner Family
DX: E78.5 Hyperlipidemia, unspecified (principal); I10 Essential (primary) hypertension; I25.5 Ischemic cardiomyopathy; Z95.5 Presence of coronary angioplasty implant and graft; I20.89 Other forms of angina pectoris
CPT/HCPCS: 36415; 80048; 80061; 80076; 83735; 84439; 84443; 85025

== ENCOUNTER 2023-12-21 19:11 | Outpatient (CLI) | payer MEDICARE, SELFPAY ==
[2023-12-21 19:59] LABS: Chloride 105 mmol/L (98-107); Potassium 4.7 mmoL/L (3.5-5.1); Sodium 135 mmol/L (136-145)
[2023-12-21 20:02] LABS: Anion Gap 5.7 mEq/L (5-15); Blood Urea Nitrogen 17 mg/dl (9-20); Calcium 8.6 mg/dl (8.4-10.2); Carbon Dioxide 29 mmol/L (22.0-30.0); Estimated Glomerular Filt Rate 59 ml/min (>60); GFR (African American) 72 ML/MIN (>60); Glucose 107 mg/dl (74-100)
== END 2023-12-21 23:59 ==
PROVIDERS: PCP Physician Assistant; Visit Provider Physician Assistant
DX: E87.6 Hypokalemia (principal)
CPT/HCPCS: 80048

== ENCOUNTER 2024-01-13 05:40 | Outpatient (CLI) | payer MEDICARE, SELFPAY ==
--- NOTE | 2024-01-13 05:59 | NM_ITS ---
APPROVED REPORT Exam: Nuclear Stress Test Indication: chest pain..soa..fatigue Patient Location: Outpatient Stress Tech: Michelle Woodson NE Tech:MARTIN Sandy RT(R)(N) Ht: 5 ft 9 in Wt: 140 lbs HR: 67 bpm BP: 147/78 mmHg BSA: 1.78 m2 Rhythm: NSR TID: 0.95 BMI: 20.6 History: chest pain..soa..fatigue Procedure: Patient received 0.4 mg of intravenous Lexiscan, resting heart rate 67 bpm, resting blood pressure 147/78 mmHg, with Lexiscan maximum heart rate achieved was 95 bpm which is 85 % of the maximum predicted heart rate and blood pressure was 159/76 mmHg. With Lexiscan, patient denied any complaint of chest pain. Cardiac Stress and Resting SPECT Images: Cardiac Stress and Resting SPECT images were obtained using technetium 99m Myoview 32.2 mCi stress and 10.97 mCi at rest. Resting and stress imaging in supine positions demonstrate a medium-sized, moderate, fixed perfusion defect in the inferior LV wall. This is no longer visualized in prone stress imaging. Findings are suggestive of diaphragmatic attenuation. Gated imaging demonstrates normal global and regional LV systolic function. LVEF is calculated at 65%. Conclusion: Diaphragmatic attenuation is present. No definite evidence of fixed or reversible perfusion defects. Gated imaging demonstrates normal global and regional LV systolic function. LVEF is calculated at 65%. Electronically signed by : Delilah Fan MD 01/15/2024 17:29:59
--- NOTE | 2024-01-13 07:24 | CA_ITS ---
APPROVED REPORT EXAM: Comprehensive 2D, Doppler, and color-flow Echocardiogram Yarn Skeins Examiner: Ivanna Gilman RDCS Ht: 5 ft 9 in Wt: 140lbs BSA: 1.78 BP: 158/81 mmHg Indications: ANGINA CM SOA COPD 2D Dimensions EF AP4 73.90 % M-Mode Dimensions RVDd 2.32 cm (0.9-2.6) LA Diam 2.02 cm (1.9-4.0) LVDd 5.02 cm (3.5-5.7) LVDs 3.00 cm (3.5-5.7) IVSd 0.65 cm (0.6-1.1) PWd 0.72 cm (0.6-1.1) EF (Teich) 70.70% FS 40.20% EDV (Teich) 119.30 mL ESV (Teich) 35.00 mL LV Diastology E Decel Time 150 (160-240 msec) E/A Ratio 1.4 Mitral Valve MV E Max Bigg. 76.0 (40-130 cm/s) MV A Velocity 54.0 (40-130 cm/s) E/A Ratio 1.39 MV PHT 44.0 ms Left Ventricle The left ventricle is normal size. The left ventricular systolic function is normal. The left ventricular ejection fraction is within the normal range. There is normal left ventricular wall thickness. There is normal LV segmental wall motion. The left ventricular diastolic function is normal. LVEF is 60%. Right Ventricle The right ventricle is normal size. The right ventricular systolic function is normal. Atria The left atrium size is normal. The right atrium size is normal. There is no Doppler evidence of interatrial shunt. Aortic Valve The aortic valve opens well. There is no aortic valvular stenosis. No aortic regurgitation is present. Mitral Valve The mitral valve is normal in structure. No evidence of mitral valve stenosis. There is no mitral valve regurgitation noted. Tricuspid Valve The tricuspid valve leaflets are thin and pliable. Trace tricuspid regurgitation. There is insufficient TR jet to estimate RVSP. Pulmonic Valve The pulmonary valve is normal in structure. Trace pulmonic regurgitation. Great Vessels The aortic root is normal in size. The ascending aorta is normal in size. IVC is normal in size and collapses >50% with inspiration. Pericardium There is no pericardial effusion. Other Information Study Quality: Adequate Conclusion Normal biventricular systolic function. No significant valvular stenosis or regurgitation. Electronically signed by : Delilah Fan MD 01/15/2024 17:27:01
[2024-01-13] MEDS: SODIUM CHLORIDE 0.9% 10ML SYR (RAD ONLY) 10 ML IV ×2 (09:25)
[2024-01-13] MEDS: ISOTOPE MYOVIEW (PER STUDY) 1 DOSE IV (09:25)
[2024-01-13] MEDS: REGADENOSON 0.4MG/5ML SYRINGE 0.400000000000000022 MG IV (09:25)
--- NOTE | 2024-01-13 10:16 | CA_ITS ---
APPROVED REPORT Exam: Pharmacologic Technologist: Michelle Nj, Ht: 5 ft 9 in Wt: 140 lbs BSA: 1.78 m2 HR: 65 bpm BP: 147/78 mmHg Rhythm: NSR Medical History Medications: Amlodipine,,,,, Aspirin,,,,, Prednisone,,,,, Levofloxacin,,,,, Trelegy Ellipta,,,,, Vitamin B-12,,,,, Stress Test Details Test: LEXISCAN Reason for pharmacologic stress test: physical limitation. HR Resting HR: 67 bpm Max Heart Rate (APMHR): 147 bpm Max HR Achieved: 95 bpm Target HR (85% APMHR): 125 bpm % of APMHR: 65 Recovery HR: 81 bpm BP Resting BP: 147.0/78.0 mmHg Max BP: 159.0/76.0 mmHg Recovery BP: 136.0/67.0 mmHg ECG Resting ECG: NSR Stress ECG: No significant ST changes Arrhythmia: None Clinical Exercise duration: 04:00 min Highest Stage Achieved: Exercise capacity: 1.0 METs Stress ECG Conclusion Symptoms: Mild head discomfort. No CP. Arrhythmias/Ectopy: None ST-T Changes: No significant ST changes. Conclusion: Unremarkable Lexiscan stress test. Myoview images reported separately. Test Summary REST . . . . . . . Resting REST 03:34 . . 67 . 147/ 78 . . Stage 1 . . . . . . . Cardiolite injected Stage 1 01:00 . . 77 . . . . Stage 2 01:00 . . 84 . 137/ 73 . . Stage 3 01:00 . . 88 . 148/ 77 . . Stage 4 01:00 . . 91 . 159/ 76 . Stop exercise at 04:00 RECOVERY 01:00 . . 95 . 156/ 80 . . RECOVERY 02:00 . . 0 . 156/ 80 . . RECOVERY 03:00 . . 0 . 156/ 80 . . RECOVERY 04:00 . . 0 . 156/ 80 . . RECOVERY 05:00 . . 0 . 156/ 80 . . RECOVERY 06:00 . . 0 . 156/ 80 . . RECOVERY 07:00 . . 0 . 156/ 80 . . RECOVERY 08:00 . . 0 . 156/ 80 . . RECOVERY 09:00 . . 0 . 156/ 80 . . RECOVERY 10:00 . . 84 . 156/ 80 . . RECOVERY 10:59 . . 76 . 136/ 67 . . Electronically signed by : Delilah Fan MD 01/15/2024 17:22:13
== END 2024-01-13 23:59 ==
LOC: RAD 05:43
PROVIDERS: PCP Family Medicine; Visit Provider Nurse Practitioner Family
DX: Z95.5 Presence of coronary angioplasty implant and graft; E78.5 Hyperlipidemia, unspecified; I25.5 Ischemic cardiomyopathy; I10 Essential (primary) hypertension; I20.89 Other forms of angina pectoris
CPT/HCPCS: 78452; 93017; 93018; 93306; A9502; J2785

== ENCOUNTER 2024-04-19 09:41 | Outpatient (CLI) | payer MEDICARE, SELFPAY ==
[2024-04-19 18:05] LABS: Basophils # 0.1 K/mm3 (0-0.2); Basophils % 1.1 % (0.1-2.0); Eosinophils # 0.2 K/mm3 (0.0-0.4); Eosinophils % 3.1 % (0.1-12.0); Hematocrit 47.1 % (42.0-52.0); Hemoglobin 15.6 g/dL (14.1-18.0); Lymphocytes % 28.7 % (10-50); Mean Corpuscular HGB Conc 33.1 g/dL (31.8-35.4); Mean Corpuscular Volume 99.7 fl (80-94); Mean Platelet Volume 8.8 fl (7.4-10.4); Monocytes # 0.5 K/mm3 (0.1-1.0); Monocytes % 7.1 % (1.7-9.3); Neutrophils # 4.1 K/mm3 (1.8-7.8); Platelet Count 322 K/mm3 (142-424); Red Blood Count 4.72 M/mm3 (4.60-6.20); Red Cell Distribution Width 13.7 % (11.5-17.5); White Blood Count 6.9 K/mm3 (4.8-10.8)
[2024-04-19 18:37] LABS: Alanine Aminotransferase 27 U/L (12-78); Albumin Level 3.7 g/dl (3.5-5.0); Albumin/Globulin Ratio 1.2 (1.1-1.8); Alkaline Phosphatase 73 U/L (38-126); Anion Gap 7.8 mEq/L (5-15); Aspartate Amino Transferase 37 U/L (17-59); Bilirubin,Total 0.5 mg/dl (0.2-1.3); Blood Urea Nitrogen 18 mg/dl (9-20); Calcium 9.2 mg/dl (8.4-10.2); Carbon Dioxide 29 mmol/L (22.0-30.0); Chloride 105 mmol/L (98-107); Chol/HDL Ratio 4.4 (1-3.5); Cholesterol 231 mg/dl (140-200); Estimated Glomerular Filt Rate 83 ml/min (>60); GFR (African American) 100 ML/MIN (>60); Glucose 102 mg/dl (74-100); HDL Cholesterol 52 mg/dl (40-60); Potassium 3.8 mmoL/L (3.5-5.1); Sodium 138 mmol/L (136-145); Total Protein,Serum 6.7 g/dl (6.3-8.2); Triglycerides 117 mg/dl (30-150); VLDL Cholesterol 23 mg/dL (0-40)
[2024-04-19 18:48] LABS: Direct LDL Cholesterol 147.32 mg/dL (100-129)
[2024-04-19 19:06] LABS: Prostate Specific Ag Screen 3.5 ng/ml (0.0-4.0); Thyroid Stimulating Hormone 1.94 uIU/mL (0.465-4.68)
== END 2024-04-19 23:59 | disposition home or self-care (01) ==
LOC: LAB.DROPOF 04-20 10:05
PROVIDERS: PCP Family Medicine; Visit Provider Family Medicine
DX: E78.5 Hyperlipidemia, unspecified (principal); E78.2 Mixed hyperlipidemia; Z12.5 Encounter for screening for malignant neoplasm of prostate
CPT/HCPCS: 80050; 80053; 80061; 84443; 85025; G0103

== ENCOUNTER 2024-05-04 10:09 | Outpatient (CLI) | payer MEDICARE, SELFPAY ==
--- NOTE | 2024-05-04 10:14 | CT_ITS ---
FINAL REPORT TECHNIQUE: Axial images through the chest was performed with and without contrast. Reformatted images were obtained and reviewed. This study was performed with techniques to keep radiation doses as low as reasonably achievable (ALARA). Individualized dose reduction techniques using automated exposure control or adjustment of mA and/or kV according to the patient's size were employed. CLINICAL HISTORY: nodule follow up COMPARISON: 02/09/2023 FINDINGS: Spiculated nodule in the left lung apex measures 6 mm, stable from previous. Finding is best seen on image 14 of series 7. There is mild biapical scarring. No pleural or pericardial effusion is identified. There is no evidence of adenopathy. Note is made of advanced emphysematous changes. Previously identified right basilar pneumonia has resolved with mild interstitial scarring in the right lower lobe at the site of pneumonia. There are small bilateral thyroid nodules, largest on the right measures 8 mm. Limited images of the upper abdomen reveal multiple left renal cysts. IMPRESSION: Stable left apical nodule. Recommend continued follow-up in 12 months. No additional follow-up needed for the small thyroid nodules. Reviewed, Interpreted and Dictated by Gabo Birmingham MD Transcribed by Lori Bernard Authenticated and [facility]
== END 2024-05-04 23:59 | disposition home or self-care (01) ==
LOC: RAD 10:11
PROVIDERS: PCP Family Medicine; Visit Provider Family Medicine
DX: R91.1 Solitary pulmonary nodule (principal)
CPT/HCPCS: 71270; Q9967

== ENCOUNTER 2024-09-28 10:36 | Emergency (ER) | payer MEDICARE, SELFPAY ==
[2024-09-28 10:45] VITALS: BP 132/81; PULSE 84; RESP 21; TEMP 36.7; O2SAT 96; BMI 20.6
--- NOTE | 2024-09-28 10:56 | EXP.UTC ---
Discharge Plan Disposition Patient Disposition: Home, Self-Care Condition: Good Prescriptions Prescriptions: New benzonatate 100 mg capsule 100 mg PO TID PRN (Reason: cough) Qty: 30 0RF oseltamivir [Tamiflu] 75 mg capsule 75 mg PO BID 5 Days Qty: 10 0RF No Action aspirin 81 MG tablet,delayed release (DR/EC) 81 mg PO DAILY atorvastatin 10 mg tablet 10 mg PO DAILY Patient Comments: TAKE 1 TABLET BY MOUTH EVERY DAY amlodipine 5 mg tablet 5 mg PO DAILY Patient Comments: TAKE 1 TABLET BY MOUTH EVERY DAY dextromethorphan-guaifenesin [Mucus DM Max ER] 60-1,200 mg tablet extended release 12 hr 1 tab PO Q12H Patient Comments: TAKE 1 TABLET BY MOUTH EVERY 12 HOURS zolpidem 10 mg tablet 10 mg PO HS Patient Comments: TAKE 1 TABLET BY MOUTH AT BEDTIME NEEDED FOR SLEEP albuterol sulfate 90 mcg/actuation HFA aerosol inhaler 2 puff INHALATION Q4HP PRN (Reason: SOA) Patient Comments: INHALE 2 PUFFS EVERY 4 TO 6 HOURS NEEDED FOR SHORTNESS OF BREATH OR FOR WHEEZE Trelegy Ellipta 100-62.5-25 mcg blister with device 1 ea INHALATION DAILY Patient Comments: INHALE 1 PUFF DAILY FOR 90 DAYS Referrals Follow up/Referrals: Samreen Mahan APRN [Primary Care Provider] - See instructions Activity Restrictions/Add. Instructions Additional Instructions/Restrictions: Start Tamiflu today if you are going to take it. Discussed risk and possible benefits. Take Mucinex during the day and Benzonate for your cough at night Lots of rest Increase Fluids water, Gatorade, powerade, pedialyte,if /toddler/child Alternate Tylenol and / or ibuprofen as discussed for fever, aches, chills Follow up IMMEDIATELY with your family doctor for new or worsening Symptoms OR no noticeable improvement over the next 48-72 hours, 911 for difficulty or breathing You or your child area contagious until no fever, aches, chills for 24 hours with medication for symptoms Help Prevent the spread of influenza: ?Wash your hands often. Use soap and water. Wash your hands after you use the bathroom, change a child's diapers, or sneeze. Wash your hands before you prepare or eat food. Use gel hand cleanser that has 60% alcohol, when soap and water are not available. Do not touch your eyes, nose, or mouth unless you have washed your hands first. Cover your mouth when you sneeze or cough. Cough into a tissue or the bend of your arm. If you use a tissue, throw it away immediately and wash your hands. Clean shared items with a germ-killing metal cleaner. Clean table surfaces, doorknobs, and light switches. Do not share towels, silverware, and dishes with people who are sick. Wash bed sheets, towels, silverware, and dishes with soap and water. Wear a mask over your mouth and nose if you are sick. The face mask may help protect others from becoming infected with the flu. Wear the mask when in common areas of your home or if you seek care with a healthcare provider. Stay away from others if you are sick. Stay at home until 24 hours after your fever and symptoms are gone. * Clinical Impressions Clinical Impression: Influenza Instructions Patient Instructions: Cough, DI for Influenza -- Adult Print Language Print Language: Lithuanian Discharge ED Provider: Jesusita Moreno [facility] General Stated complaint: sinus congestion Mode of Arrival: Ambulatory Source of Information: Patient Limitations: No Limitations Time Seen by Provider: 09/28/24 10:56 Description of Symptoms (Recalled from Triage Doc. by RN): PATIENT C/O COUGH, RUNNY NOSE, AND EARS BURNING THAT STARTED THIS MORNING HEENT Symptoms (Recalled from RN notes): Yes Resp Symptoms (Recalled from RN notes): Yes Skin Symptoms (Recalled from RN notes): No MS Symptoms (Recalled from RN notes): No Functional Status (Recalled from RN notes): WNL History of Present Illness Provider Complaint: Patient states that he was recently on antibiotics for sinus infection States that he woke up this morning with cough, runny nose and feeling like he is having some burning in his ears so he came in since Flu is going around and the cough was bothering him Denies productive cough Related Data Home Medications ?Medication ?Instructions ?Recorded ?Confirmed aspirin 81 mg tablet,delayed 81 mg PO DAILY Heart 10/22/20 09/28/24 release albuterol sulfate 90 mcg/actuation 2 puff inhalation Q4HP PRN SOA 09/28/24 09/28/24 aerosol inhaler amlodipine 5 mg tablet 5 mg PO DAILY 09/28/24 09/28/24 atorvastatin 10 mg tablet 10 mg PO DAILY 09/28/24 09/28/24 dextromethorphan-guaifenesin ER 60 1 tab PO Q12H 09/28/24 09/28/24 mg-1,200 mg tab,extend release,12hr (Mucus DM Max ER) fluticasone fur. 100 mcg-umeclid 1 ea inhalation DAILY 09/28/24 09/28/24 62.5 mcg-vilant 25 mcg inhalat.powder (Trelegy Ellipta) zolpidem 10 mg tablet 10 mg PO HS 09/28/24 09/28/24 Previous Rx's ?Medication ?Instructions ?Recorded benzonatate 100 mg capsule 100 mg PO TID PRN cough #30 caps 09/28/24 oseltamivir 75 mg capsule (Tamiflu) 75 mg PO BID 5 days #10 caps 09/28/24 Allergies Allergy/AdvReac Type Severity Reaction Status Date / Time [id number] Reductase AdvReac Mild myalgia Verified 09/10/24 14:58 Inhibitor Worker's Comp Is this a Worker's Comp case?: No [facility] Disclaimer: The information contained in this section may have been updated after the patient was seen, as this information can be updated by other users. Medical History Hypokalemia Typical angina Gingival and edentulous alveolar ridge lesions associated with trauma Gingival abscess Ischemic cardiomyopathy Sinus bradycardia Dyspnea Surgical History History of colonoscopy History of mandibular surgery History of lung surgery Social History Smoking Status: Current every day smoker tobacco type: cigarettes packs per day: 1 second hand exposure: No alcohol intake: never current occupational status: employed Travel in the last 8 weeks: None household members: none housing: apartment current occupation: human resource officer current occupational exposures/hazards: No caffeine: Yes Have you lived/traveled outside US in past 30 days?: No Contact w/someone who lives/traveled outside US past 30 days?: No Exposure to someone with infectious disease in past 14 days?: No Do you have a fever (greater than 100.4 F or 38 C)?: No Have you tested positive for COVID-19: No Exposed to someone with COVID-19 in past 14 days?: No Do you have a sore throat?: No Do you have a cough?: No Do you have any weakness?: No Do you have any diarrhea?: No Are you experiencing any unusual bleeding?: No Do you have any muscle aches/pain?: No Do you have any abdominal pain?: No Are you experiencing loss of taste or smell?: No ROS Obtained: Yes All systems reviewed & no additional complaints except as documented and Yes Systems reviewed as appropriate & no additional complaints except as documented Constitutional Constitutional: Reports system reviewed and no additional complaints, except as documented and Reports as per HPI ENT Ears, Nose, Mouth, and Throat: Reports system reviewed and no additional complaints, except as documented, Reports as per HPI, Reports nasal congestion and Reports nasal discharge Cardiovascular Cardiovascular: Reports system reviewed and no additional complaints, except as documented and Reports as per HPI Respiratory Respiratory: Reports system reviewed and no additional complaints, except as documented, Reports as per HPI and Reports cough Gastrointestinal Gastrointestingal: Reports system reviewed and no additional complaints, except as documented and as per HPI Physical Exam General General appearance: alert and in no apparent distress ENT ENT exam: Absent mucous membranes moist Expanded ENT Exam TM/Canal exam: Bilateral TM: bulging (mild no redness) Nose exam: Absent sinus tenderness Throat exam: Present other (mild pharyngeal erythema noted, yeast like area noted on roof of mouth, patient reports is on Nystatin for it now) Respiratory Respiratory exam: Present normal lung sounds bilaterally; Absent respiratory distress or wheezes Cardiovascular Cardiovascular exam: Present regular rate, normal rhythm and normal heart sounds Abdominal Exam Abdominal exam: Present soft and normal bowel sounds; Absent distention or tenderness Neurological Exam Neurological exam: Present alert, oriented X3 and normal gait Medical Decision Making Medical Records Screening: Per USPSTF and CDC recommendations, given the prevalence of disease in our region, it is our hospital?s policy to screen for HIV and viral Hepatitis for all patients aged 18 and over and those with ongoing risk factors. Lonnie Inquiry Pt receiving controlled substance: No Lonnie was queried for this patient: No Vital Signs: 09/28/24 10:45 Temperature 98.1 F Temperature Source Oral Pulse Rate [Left Brachial] 84 Respiratory Rate 21 Blood Pressure [Left Arm] 132/81 Blood Pressure Mean [Left Arm] 98 Blood Pressure Source [Left Arm] Automatic Cuff Blood Pressure Position [Left Arm] Sitting 02 Sat by Pulse Oximetry 96 Oxygen Delivery Method Room Air Lab Data Lab results reviewed: Yes I reviewed the patient's lab results.
[2024-09-28 11:18] LABS: UTC Strep Screen (Rapid) Negative (Negative)
[2024-09-28 11:19] LABS: UTC Influenza A Antigen Positive (Negative); UTC Influenza B Antigen Negative (Negative)
[2024-09-28 11:30] VITALS: BP 132/81; PULSE 84; RESP 18; TEMP 36.7; O2SAT 96
== END 2024-09-28 11:35 | disposition home or self-care (01) ==
PROVIDERS: Emergency Provider Nurse Practitioner; PCP Nurse Practitioner
DX: J11.1 Influenza due to unidentified influenza virus with other respiratory manifestations (principal); R05.9 Cough, unspecified; R09.81 Nasal congestion
CPT/HCPCS: 87804; 87880; 99212; G0381

== ENCOUNTER 2024-12-06 11:08 | Outpatient (CLI) | payer MEDICARE, SELFPAY ==
[2024-12-06 18:56] LABS: Basophils % 0.4 % (0.1-2.0); Eosinophils # 0.2 K/mm3 (0.0-0.4); Eosinophils % 2.2 % (0.1-12.0); Hematocrit 44.4 % (42.0-52.0); Hemoglobin 15.1 g/dL (14.1-18.0); Lymphocytes % 18.8 % (10-50); Mean Corpuscular Hemoglobin 32.4 pg (27.0-31.2); Mean Corpuscular Volume 95.3 fl (80-94); Mean Platelet Volume 9.3 fl (7.4-10.4); Monocytes % 9.2 % (1.7-9.3); Neutrophils # 7.2 K/mm3 (1.8-7.8); Platelet Count 285 K/mm3 (142-424); Red Blood Count 4.66 M/mm3 (4.60-6.20); White Blood Count 10.4 K/mm3 (4.8-10.8)
[2024-12-06 20:27] LABS: Erythrocyte Sedimentation Rate 14 mm/hr (0-20)
[2024-12-06 21:07] LABS: C-Reactive Protein 10.6 mg/L (0-4)
== END 2024-12-06 23:59 | disposition home or self-care (01) ==
LOC: LAB.DROPOF 12-07 11:10
PROVIDERS: PCP Family Medicine; Visit Provider Family Medicine
DX: R79.82 Elevated C-reactive protein (CRP) (principal); R68.84 Jaw pain
CPT/HCPCS: 85025; 85651; 86140

== ENCOUNTER 2024-12-27 12:43 | Outpatient (CLI) | payer MEDICARE, SELFPAY ==
[2024-12-27 13:26] LABS: Blood Urea Nitrogen 16 mg/dl (9-20); Estimated Glomerular Filt Rate 94 ml/min (>60); GFR (African American) 114 ML/MIN (>60)
== END 2024-12-27 23:59 | disposition home or self-care (01) ==
LOC: RAD 12:44
PROVIDERS: PCP Family Medicine; Visit Provider Family Medicine
DX: Z01.812 Encounter for preprocedural laboratory examination (principal)
CPT/HCPCS: 36415; 82565; 84520

== ENCOUNTER 2025-01-10 08:55 | Outpatient (CLI) | payer MEDICARE, SELFPAY ==
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
[2025-01-10] MEDS: SODIUM CHLORIDE 0.9% 10ML SYR (RAD ONLY) 10 ML IV (10:07)
[2025-01-10] MEDS: GADOTERIDOL INJ 20ML SYRINGE 13 ML IV (10:07)
== END 2025-01-10 23:59 | disposition home or self-care (01) ==
PROVIDERS: PCP Family Medicine; Visit Provider Family Medicine
DX: M86.9 Osteomyelitis, unspecified (principal)
CPT/HCPCS: 70543; A9576

== ENCOUNTER 2025-03-06 12:21 | Emergency (ER) | payer MEDICARE, SELFPAY ==
[2025-03-06 12:38] VITALS: BP 200/114; PULSE 60; RESP 18; TEMP 36.6; O2SAT 98; BMI 21.4
[2025-03-06 13:15] LABS: Basophils # 0.1 K/mm3 (0-0.2); Basophils % 0.9 % (0.1-2.0); Eosinophils # 0.2 Kmm3 (0.0-0.4); Hematocrit 43.7 % (42.0-52.0); Hemoglobin 15.3 g/dL (14.1-18.0); Immature Granulocytes # 0.02 10^3uL; Immature Granulocytes % 0.3 %; Lymphocytes % 26.7 % (10-50); Mean Corpuscular Hemoglobin 31.6 pg (27.0-31.2); Mean Corpuscular Volume 90.3 fl (80-94); Mean Platelet Volume 8.8 fl (7.4-10.4); Monocytes # 0.6 K/mm3 (0.1-1.0); Monocytes % 8.4 % (1.7-9.3); Neutrophils # 4.6 K/mm3 (1.8-7.8); Neutrophils % 61.7 % (37.0-80.0); Nucleated Red Blood Cells # 0 10^3/uL; Nucleated Red Blood Cells % 0 %; Platelet Count 237 K/mm3 (142-424); Red Blood Count 4.84 M/mm3 (4.60-6.20); Red Cell Distribution Width 11.9 % (11.5-17.5); Red Cell Distribution Width-SD 39.3 fL; White Blood Count 7.4 K/mm3 (4.8-10.8)
[2025-03-06 13:23] LABS: Albumin Level 3.6 g/dl (3.5-5.0); Chloride 103 mmol/L (98-107); Sodium 139 mmol/L (136-145)
[2025-03-06 13:24] LABS: Potassium 3.7 mmoL/L (3.5-5.1)
[2025-03-06 13:26] LABS: Alanine Aminotransferase 27 U/L (12-78); Albumin/Globulin Ratio 1.3 (1.1-1.8); Alkaline Phosphatase 62 U/L (38-126); Anion Gap 3.7 mEq/L (5-15); Aspartate Amino Transferase 39 U/L (17-59); Bilirubin,Total 0.6 mg/dl (0.2-1.3); Blood Urea Nitrogen 18 mg/dl (9-20); Carbon Dioxide 36 mmol/L (22.0-30.0); Creatinine Clearance Estimated 60 mL/min (50-200); Estimated Glomerular Filt Rate 82 ml/min (>60); GFR (African American) 100 ML/MIN (>60); Globulin 2.8 g/dL (1.3-3.2); Total Protein,Serum 6.4 g/dl (6.3-8.2)
[2025-03-06 13:27] LABS: Glucose 111 mg/dl (74-100)
[2025-03-06] MEDS: IRBESARTAN 150MG TAB 150 MG PO (14:02)
[2025-03-06 14:09] VITALS: BP 212/90; PULSE 64; RESP 18; TEMP 36.6; O2SAT 96
[2025-03-06 14:33] LABS: HIV Combo NEGATIVE (Negative)
[2025-03-06 18:03] LABS: Hepatitis C Ab Qual. W/ RFX NEGATIVE (Negative)
--- NOTE | 2025-03-16 00:08 | ED_ITS ---
Discharge Plan Disposition Patient Disposition: Home, Self-Care Prescriptions Prescriptions: No Action triamcinolone acetonide 0.1 % paste 1 applic dental TID PRN (Reason: mouth irritation) Qty: 10 3RF Rx Instructions: use after food and/or drink and/or oral hygiene atorvastatin 10 mg tablet 10 mg PO DAILY Qty: 90 1RF isosorbide dinitrate 30 mg tablet 30 mg PO DAILY Qty: 60 2RF Rx Instructions: allow nitrate-free interval of 12-14 hrs per 24-hr period amlodipine [Norvasc] 10 mg tablet 10 mg PO DAILY Qty: 90 3RF irbesartan [Avapro] 300 mg tablet 300 mg PO DAILY Qty: 90 3RF zolpidem 10 mg tablet 10 mg PO HS Qty: 30 5RF budesonide-formoterol [Symbicort] 160-4.5 mcg/actuation HFA aerosol inhaler 1 inh inhalation BID Qty: 10.2 12RF clonidine HCl 0.2 mg tablet See Rx Instructions .ROUTE .COMPLEX Qty: 90 3RF Rx Instructions: one po q 8 prn sbp>160 hydralazine 50 mg tablet 50 mg PO TID Qty: 90 2RF aspirin 81 MG tablet,delayed release (DR/EC) 81 mg PO DAILY Referrals Follow up/Referrals: Abdullahi Valenzuela MD [Primary Care Provider, Family Practice] - See instructions Clinical Impressions Clinical Impression: Asymptomatic hypertension Instructions Patient Instructions: DI for High Blood Pressure Print Language Print Language: [place] Discharge ED Provider: Raúl Arthur General Adult HPI General Chief complaint: Recheck/Abnormal Lab/Rx Stated complaint: Dr. Valenzuela sent for high blood pressure Time Seen by Provider: 03/06/25 12:31 Mode of Arrival: Ambulatory Source of Information: Patient Description of Symptoms (Recalled from ER Triage Doc. by RN): PT SENT FROM PCP, ELEVATED B/P IN OFFICE 230/90. PT REPORTS HEADACHE, DIZZINESS AND FATIGUE. REPORTS TAKING BLOOD PRESSURE MEDS DIRECTED. PT DENIES CHEST PAIN. REPORTS SHORTNESS OF BREATH, UNCHANGED FROM BASELINE. History of Present Illness HPI narrative: Please note that above description of symptoms, in this electronic medical record under categorization of recalled from ER triage doctor by RN are reflective of an initial nursing assessment, however, is not reflective of my full history and physical exam that was personally taken and clarified. Consequentially, this preceding description of symptoms, which may include the patient's categorized chief complaint in the EMR, do not reflect my personal clinical impression, and the ultimate description of history of present illness and patient stated complaints should be deferred to this section of the note. Unless stated otherwise or congruent with this section of the note, additional signs, symptoms, or incongruence should be interpreted as inaccurate with my clinical impression. Related Data Home Medications ?Medication ?Instructions ?Recorded ?Confirmed aspirin 81 mg tablet,delayed 81 mg PO DAILY Heart 10/1003/13/25 release Previous Rx's ?Medication ?Instructions ?Recorded triamcinolone acetonide 0.1 % 1 applic dental TID PRN mouth 10/11/24 dental paste irritation #10 grams zolpidem 10 mg tablet 10 mg PO HS #30 tabs 5 budesonide-formoterol HFA 160 1 inh inhalation BID #10 .2 grams 02/06/25 mcg-4.5 mcg/actuation aerosol inhaler (Symbicort) atorvastatin 10 mg tablet 10 mg PO DAILY #90 tabs 02/08 06/03 amlodipine 10 mg tablet (Norvasc) 10 mg PO DAILY #90 t abs 03/07/25 clonidine HCl 0.2 mg tablet See Rx Instructions .Route 03/07/25 .COMPLEX #90 tabs irbesartan 300 mg tablet (Avapro) 300 mg PO DAILY #90 tabs 03/07/25 hydralazine 50 mg tablet 50 mg PO TID #90 tabs isosorbide dinitrate 30 mg tablet 30 mg PO DAILY #60 t abs 03/13/25 Allergies Allergy/AdvReac Type Severity Reaction Status Date / Time oseltamivir (From Tamiflu) Allergy Severe Swelling Verified 03/13/25 09:51 of Lip/Tongue/Throat [id number] Reductase AdvReac Mild myalgia Verified 03/13/25 09:51 Inhibitor PFSH COUNTS INCLUDE 234 BEDS AT THE [facility] Disclaimer: The information contained in this section may have been updated after the patient was seen, as this information can be updated by other users. Medical History Hypokalemia Typical angina Gingival and edentulous alveolar ridge lesions associated with trauma Gingival abscess Ischemic cardiomyopathy Sinus bradycardia Dyspnea Surgical History History of colonoscopy History of mandibular surgery History of lung surgery Family History Other No significant family history Social History Smoking Status: Current every day smoker tobacco type: cigarettes packs per day: 1 second hand exposure: No alcohol intake: never current occupational status: employed Travel in the last 8 weeks?: None household members: none housing: apartment current occupation: police communications operator current occupational exposures/hazards: No caffeine: Yes Other Medical History Have you received the Flu Vaccine for this season: Yes Have you received the Pneumonia Vaccine: Yes ROS Obtained: Yes All systems reviewed & no additional complaints except as documented Physical Exam General General appearance: alert Head Head exam: atraumatic and normocephalic Eye Eye exam: Present normal appearance, PERRL and EOMI Neck Neck exam: Present normal inspection, full ROM and trachea midline Respiratory Respiratory exam: Absent respiratory distress, wheezes, stridor, accessory muscle use or prolonged expiratory phase Cardiovascular Cardiovascular exam: Present other (Pulses equal symmetric in upper and lower extremities) Abdominal Exam Abdominal exam: Present soft; Absent distention, tenderness or pulsatile mass Extremities Exam Extremities exam: Absent edema Neurological Exam Neurological exam: Present alert, oriented X3 and CN II-XII intact; Absent motor sensory deficit Skin Skin exam: Present warm and dry; Absent diaphoresis or erythema Medical Decision Making Medical Records Medical records reviewed: Yes I reviewed the patient's medical records. Screening: Per USPSTF and CDC recommendations, given the prevalence of disease in our region, it is our hospital?s policy to screen for HIV and viral Hepatitis for all patients aged 18 and over and those with ongoing risk factors. Lonnie Inquiry Pt receiving controlled substance: No Lonnie was queried for this patient: No Vital Signs: 03/06/25 12:38 03/06/25 14:09 Temperature 97.9 F 97.9 F Temperature Source Oral Oral Pulse Rate 64 Pulse Rate [Radial] 60 Respiratory Rate 18 18 Blood Pressure 212/90 H Blood Pressure [Left Arm] 200/114 H Blood Pressure Mean [Left Arm] 142 Blood Pressure Source Automatic Cuff Blood Pressure Source [Left Arm] Automatic Cuff Blood Pressure Position Sitting Blood Pressure Position [Left Arm] Sitting 02 Sat by Pulse Oximetry 98 Oxygen Delivery Method Room Air Room Air Lab Data Lab Results 03/06/25 13:05: WBC 7.4, RBC 4.84, Hgb 15.3, Hct 43.7, MCV 90.3, MCH 31.6 H, MCHC 35.0, RDW 11.9, Plt Count 237, MPV 8.8, Neut % (Auto) 61.7, Lymph % (Auto) 26.7, [place] % (Auto) 8.4, Eos % (Auto) 2.0, Baso % (Auto) 0.9, Neut # (Auto) 4.6, Lymph # (Auto) 2.0, [place] # (Auto) 0.6, Eos # (Auto) 0.2, Baso # (Auto) 0.1, Sodium 139, Potassium 3.7, Chloride 103, Carbon Dioxide 36 H, Anion Gap 3.7 L, BUN 18, Creatinine 0.90, Estimated Creat Clear 60, Estimated GFR 82, Est GFR ( Amer) 100, Glucose 111 H, Calcium 9.0, Total Bilirubin 0.6, AST 39, ALT 27, Alkaline Phosphatase 62, Total Protein 6.4, Albumin 3.6, Globulin 2.8, Albumin/Globulin Ratio 1.3, HCV Ab ARMANDO w/Rflx PCR Qn Negative, HIV Ag/Ab Combo Qual Negative 03/06/25 13:05 03/06/25 13:05 Orders (Tests/Meds): ED MEDICATIONS Discontinued Medications Generic Name Dose Route Start Last Admin Trade Name Freq PRN Reason Stop Dose Admin Irbesartan 150 mg 03/06/25 13:00 03/06/25 14:02 Irbesartan 150mg Tab PO 03/06/25 13:01 150 mg ONCE ONE Administration ORDERS Category Date Time Status Complete Blood Count Auto Diff Stat Lab 03/06/25 13:05 Completed Comprehensive Metabolic Panel Stat Lab 03/06/25 13:05 Completed HIV Combo Stat Lab 03/06/25 13:05 Completed Hepatitis C Ab Qual. W/ RFX Stat Lab 03/06/25 13:05 Completed Medical Decision Narrative: Encounter disclaimer: this encounter happened during EMR downtime. I was unable to access patient's records, or access chart in any way to influence care. Details may also be missing from this documented encounter Patient is 74 with history of HTN, HLD, CAD, CHF, COPD not on home O2 presenting with HTN from PCP office. Patient states he is currently asymptomatic, but is only on amlodipine. Has been taking this. He has had intermittent CLAIRE, lightheadedness, but no other symptoms on full ROS. Sent from his PCPs office for these reasons. History obtained only with patient. On arrival, hypertensive, but otherwise unremarkale exam. CV exam normal without MGR, no LE edema, and patient neuro intact without acute complaint. Basic labs obtained, but unremarkable and non-actionable on independent interpretation. Troponin and EKG considedered, but not deemed necessary because patient without any CP or respiratory complaints. Given first dose of Irbesartan here. Prior to discharge, systolic BP in the 180s, patient remains asymptomatic. Patient sent home in HDS condition with recommendations to call his PCP again. Irbesartan sent to pharmacy. Pen Tender disclaimer Much of this encounter note is an electronic preparing box tender spoken language to printed text. Electronic preparing box tender of the spoken language may permit errors. Although I have reviewed the note, some errors may still exist. Critical Care Critical Care Time Critical Care Time: No
== END 2025-03-06 14:18 | disposition home or self-care (01) ==
PROVIDERS: Emergency Provider Emergency Medicine; PCP Family Medicine
DX: R51.9 Headache, unspecified (principal); I10 Essential (primary) hypertension; F17.210 Nicotine dependence, cigarettes, uncomplicated; Z11.59 Encounter for screening for other viral diseases; Z11.4 Encounter for screening for human immunodeficiency virus [HIV]
CPT/HCPCS: 80053; 85025; 86803; 87389; 99283

== ENCOUNTER 2025-03-21 08:10 | Day surgery (SDC) | payer MEDICARE, SELFPAY ==
[2025-03-21] VITALS (12 sets, daily range): BP systolic 181–235; BP diastolic 90–110; PULSE 46–70; RESP 18; TEMP 36.6; O2SAT 90–95; BMI 21.7
--- NOTE | 2025-03-21 07:16 | IR_ITS ---
APPROVED REPORT Patient Location: Outpatient PROCEDURES Left heart catheterization Left ventriculogram Selective coronary angiogram Left internal mammary angiography Bilateral selective renal angiography Drug-eluting stent deployment to the proximal right coronary artery Drug-eluting stent deployment to the proximal LAD Bare-metal balloon mounted stent deployment to the right renal artery INDICATION Coronary artery disease, Worsening angina pectoris, Malignant hypertension suspect renal artery stenosis, Renovascular hypertension Informed consent was obtained prior to the procedure. COMPLICATIONS NONE Estimated Blood Loss: LESS THAN 10 ML TECHNIQUE One percent lidocaine was used to anesthetize the right groin. The right femoral artery was accessed via the Seldinger technique. A 4-Estonian sheath was placed in the right femoral artery. The JL-4 and JR-4 catheter was also used to perform left heart catheterization left ventriculogram and selective coronary angiogram. The JR4 catheter was used to perform nonselective engagement of the left internal mammary artery which demonstrated wide patency to the chest wall. The JR4 was then used to perform bilateral selective renal angiography. Upon the diagnostic angiogram the 4 Estonian sheath exchanged for a 6 Estonian sheath therapeutic Was administered giving a therapeutic ACT and a JR4 cath was used to treat the right coronary artery. A Choice PT extra-support wire was placed distally and a 2 mm x 12 mm balloon was deployed in the proximal right coronary artery on 2 occasions to predilate the critical stenosis. Following this a 2.25 x 30 mm Francisco frontier stent was placed in the proximal right coronary artery at 20 shanon reducing the critical stenosis. POLLY III flow was present before and after the procedure. Following this a JL 4 guide catheter was placed in the left main artery followed by the BMW wire placed distally in the LAD. A 3.5 x 26 mm Francisco frontier stent was placed in the proximal LAD and deployed at 15 shanon reducing the severe stenosis to 0%. POLLY-3 flow was present before and after the procedure. Following this a short SCHULTE guide catheter was placed on right renal artery and a BMW wire placed distally in the renal artery. A 6 mm x 15 mm Herculink stent was deployed at 12 shanon reducing the severe stenosis to 0%. At the end the procedure the apparatus was removed the groin is reprepped closure change sheath was removed and hemostasis was achieved using Perclose device patient was transferred to the postop putting in stable condition ANGIOGRAPHIC RESULTS The left main artery Normal The left anterior descending artery Has a proximal 70% stenosis there is additional mid vessel 30% stenoses The circumflex artery Is dominant and proximally normal. A large first obtuse marginal artery has a proximal 40 to 50% stenosis. The second obtuse marginal artery has proximal 40 and 50% eccentric stenoses. The terminal obtuse marginal artery is medium in size and has a proximal 40 followed by concentric 50% stenosis The right coronary artery Is a nondominant vessel and has proximal 80% followed by concentric 90% stenosis. Distally there are 30 and 40% stenoses throughout The HAUSER ventriculogram reveals Normal 65% The left ventricular end-diastolic pressure 10 mmHg SCHULTE is widely patent to the chest wall Left renal artery singular normal Right renal artery singular and has a proximal concentric 70% stenosis IMPRESSION Coronary artery disease as described above Successful stenting of the right coronary artery severe tandem disease reduced to 0% with 1 drug-eluting stent Successful stenting of the proximal LAD severe disease reduced to 0% with 1 drug-eluting stent Normal left renal artery Severe right renal artery stenosis Successful stenting the right renal artery severe disease reduced to 0% with 1 drug-eluting stent Normal ejection fraction Normal LVEDP PLAN 1. Dual antiplatelet therapy 2. Better control of hypertension 3. LDL less than 55 achieved with high intensity statin 4. Avoidance of tobacco products 5. Risk factor modification 6. Cardiac rehabilitation Electronically signed by : Rafa Jade MD 03/21/2025 11:15:03
[2025-03-21 08:43] LABS: Basophils # 0.1 K/mm3 (0-0.2); Eosinophils # 0.2 Kmm3 (0.0-0.4); Eosinophils % 2.6 % (0.1-12.0); Hematocrit 43.2 % (42.0-52.0); Hemoglobin 14.9 g/dL (14.1-18.0); Immature Granulocytes # 0.02 10^3uL; Immature Granulocytes % 0.3 %; Lymphocytes # 2.3 K/mm3 (0.7-4.5); Lymphocytes % 31.4 % (10-50); Mean Corpuscular HGB Conc 34.5 g/dL (31.8-35.4); Mean Corpuscular Hemoglobin 31.3 pg (27.0-31.2); Mean Corpuscular Volume 90.8 fl (80-94); Mean Platelet Volume 9.2 fl (7.4-10.4); Monocytes # 0.7 K/mm3 (0.1-1.0); Monocytes % 8.8 % (1.7-9.3); Neutrophils # 4.1 K/mm3 (1.8-7.8); Neutrophils % 55.9 % (37.0-80.0); Nucleated Red Blood Cells # 0 10^3/uL; Nucleated Red Blood Cells % 0 %; Platelet Count 256 K/mm3 (142-424); Red Blood Count 4.76 M/mm3 (4.60-6.20); Red Cell Distribution Width 12.5 % (11.5-17.5); Red Cell Distribution Width-SD 41.3 fL; White Blood Count 7.4 K/mm3 (4.8-10.8)
[2025-03-21 08:45] LABS: Chloride 102 mmol/L (98-107)
[2025-03-21 08:46] LABS: Potassium 3.4 mmoL/L (3.5-5.1); Sodium 138 mmol/L (136-145)
[2025-03-21 08:49] LABS: Anion Gap 6.4 mEq/L (5-15); Blood Urea Nitrogen 18 mg/dl (9-20); Calcium 10.3 mg/dl (8.4-10.2); Carbon Dioxide 33 mmol/L (22.0-30.0); Creatinine Clearance Estimated 56 mL/min (50-200); Estimated Glomerular Filt Rate 65 ml/min (>60); GFR (African American) 79 ML/MIN (>60); Glucose 122 mg/dl (74-100)
[2025-03-21] MEDS: 0.9 % SODIUM CHLORIDE 500 ML 25 ML IV (10:16)
[2025-03-21] MEDS: diphenhydrAMINE 50MG/ML VIAL 50 MG IV (10:16)
[2025-03-21] MEDS: LIDOCAINE 1% 10ML MDV 10 ML IJ (10:17)
[2025-03-21] MEDS: HEPARIN 1,000 UNITS/500ML NS (CATH LAB) 3000 UNIT IV (10:17)
[2025-03-21] MEDS: MIDAZOLAM HCL 1MG/ML 5ML VIAL 1 MG IV (10:17)
[2025-03-21] MEDS: FENTANYL 100MCG/2ML VIAL 50 MCG IV (10:17)
[2025-03-21] MEDS: HYDRALAZINE 20MG/ML VIAL 20 MG IV (13:29)
[2025-03-21] MEDS: IOPAMIDOL-370 (76%);100ML BOTTLE 120 ML IV (13:52)
[2025-03-21 13:54] LABS: CATHL Activated Clotting Time 291 SEC (74-125)
[2025-03-21] MEDS: CLOPIDOGREL 300MG TABLET 600 MG PO (14:05)
--- NOTE | 2025-03-21 14:07 | SUR.PHASEII ---
CALLED DR CORRAL REGARDING PATIENTS ELEVATED BP, NEW ORDERS RECIEVED, GIVEN, INSRUCTED PATIENT TO COME INTO OFFICE IN AM FOR CHECK
[2025-03-21] MEDS: hydroCHLOROthiazide 25MG TABLET 25 MG PO (14:09)
== END 2025-03-21 14:28 | disposition home or self-care (01) ==
PROVIDERS: PCP Family Medicine; Visit Provider Internal Medicine
PROC: 4A023N7 Measurement of Cardiac Sampling and Pressure, Left Heart, Percutaneous Approach (ICD-10-PCS; CPT 93452; principal; 2025-03-21 09:15)
DX: I25.118 Atherosclerotic heart disease of native coronary artery with other forms of angina pectoris (principal); I15.0 Renovascular hypertension; I70.1 Atherosclerosis of renal artery; I11.0 Hypertensive heart disease with heart failure; I50.32 Chronic diastolic (congestive) heart failure; R94.31 Abnormal electrocardiogram [ECG] [EKG]; E78.5 Hyperlipidemia, unspecified; I25.2 Old myocardial infarction; Z79.02 Long term (current) use of antithrombotics/antiplatelets; Z79.899 Other long term (current) drug therapy; Z79.82 Long term (current) use of aspirin; Z95.5 Presence of coronary angioplasty implant and graft; F17.210 Nicotine dependence, cigarettes, uncomplicated; Z88.8 Allergy status to other drugs, medicaments and biological substances
CPT/HCPCS: 37236; 93458; C9600 ×2; 80048; 85025; 85347; 92928; 99152; 99153; C1725; C1760; C1769; C1874; C1876; C1887; C1894; J0360; J1200; J1644; J3010; J7040; Q9967

== ENCOUNTER 2025-07-12 09:29 | Outpatient (CLI) | payer MEDICARE, SELFPAY ==
--- OUTSIDE RECORDS SUMMARY | 2025-07-12 09:32 | XMS_ITS | Clinical Summary ---
Author Organization [facility] Address [facility] [place] [address] Care Team Providers Care Vocational School Teacher Name Role Phone Abdullahi Valenzuela MD Primary Care Provider [phone] Source Comments This information has been disclosed to you from confidential records protectedfrom disclosure by state law. You shall make no further disclosure of thisinformation without the specific, written, and informed release of theindividual to whom it pertains, or as otherwise permitted by law. A generalauthorization for the release of medical or other information is not sufficientfor the purposes of therelease of HIV test results or diagnoses. [id number] Health Allergies No known active allergies Medications albuterol (PROVENTIL;VENT ARCELIA;PROAIR) 90 mcg/actuation inhaler Inhale into the lungs. 5 Active HYDROcodone-malorie taminophen (NORCO) 10-325 mg per tablet Take 1 tablet by mouth 2 times a day. Active cyanocobalamin (VITAMIN B-12) 1000 MCG tablet 1 tablet (1,000 mcg total) once a week. Uses injection 1x a week Active losartan (COZAAR) 25 MG tablet Take 1 tablet (25 mg total) by mouth daily. Is unsure of dose, will bring back medications to next visit (06/17/22) Active aspirin 81 MG EC tablet Take 1 tablet (81 mg total) by mouth daily. Active triazolam (HALCION) 0.25 MG tablet Take 1 tablet (0.25 mg total) by mouth at bedtime as needed. Active fluticasone-ume clidin-vilanter (TRELEGY ELLIPTA) 100-62.5-25 mcg DsDv Inhale 1 puff into the lungs. Active amLODIPine (NORVASC) 5 MG tablet Take 1 tablet (5 mg total) by mouth daily. Active acetaminophen (TYLENOL) 325 MG tablet Take 2 tablets (650 mg total) by mouth every 6 hours as needed. 40 tablet 3 Active ibuprofen (MOTRIN) 600 MG tablet Take 1 tablet (600 mg total) by mouth every 6 hours as needed for Pain. 30 tablet 3 Active chlorhexidine (PERIDEX) 0.12 % solution Use as directed 15 mLs in the mouth or throat 3 times a day. 473 mL 3 Active naloxone (NARCAN) 4 mg/actuation [place] Apply 1 spray in one nostril if needed. Call 911. May repeat dose in other nostril if no response in 3 minutes. 2 each 1 3 Active Active Problems Problem Noted Date Diagnosed Date Coronary artery disease invo lving [place] heart with angina pectoris 03/28/2023 Ischemic cardiomyopathy 03/28/2023 Hypertension 03/28/2023 Hyperlipidemia 03/28/2023 Chronic obstructive pulmonary disease 03/28/2023 Tobacco use 03/28/2023 Lung nodule 07/15/2022 Neck swelling 06/03/2016 Family History Medical History Relation Comments Anesthesia problems Neg Hx Social History Tobacco Use Types Packs/Day Years Used Date Smoking Tobacco: Every Day Cigarettes 3 62.8 Started: 10/10/1962 Smokeless Tobacco: Never Comments:down to 1/2ppd Alcohol Use Standard Drinks/Week Comments Not Currently 0 (1 standard drink = 0.6 oz pur e alcohol) Sex and Gender Information Value Date Recorded Sex Assigned at Not on file Legal Sex Male 10:07 AM EDT Gender Identity Not on file Sexual Orientation Not on file Last Filed Vital Signs Vital Sign Reading Time Taken Comments Blood Pressure 144/77 04/11/2023 10:48 AM EDT Pulse 70 04/11/2023 10:48 AM EDT Temperature 36.5 C (97.7 F) 04/11/2023 9:45 AM EDT Respiratory Rate 16 04/11/2023 10:48 AM EDT Oxygen Saturation 95% 04/11/2023 10:48 AM EDT Inhaled Oxygen Concentration 95% 04/11/2023 1 0:48 AM EDT Weight 59.9 kg (132 lb) 03/28/2023 8:05 AM EDT Height 176.5 cm (5' 9.5 ) 03/28/2023 8:05 AM EDT Body Mass Index 19.21 03/28/2023 8:05 AM EDT Plan of Treatment Health Maintenance Due Date Last Done Comments Abnormal Colonoscopy Follow Up 1950 Alcohol Misuse Screening 1968 Depression Screening 1968 Immunization: DTaP/Tdap/Td (1 - Tdap) 1969 Immunization: Pneumococcal (1 of 2 - PCV) 1969 Cologuard (FIT-DNA) 1995 Colonoscopy 1995 Colorectal Cancer Screening (MyChart) 1995 Stool Testing (gFOBT) 1995 Immunization: Zoster (1 of 2) 2000 Lung Cancer Screening 2000 Immunization: RSV (Adult) (1 - Risk 60-74 years 1-dose series) 2010 Abdominal Aortic Aneurysm (AAA) Screening 2015 Renal Function/GFR 03/28/2024 03/28/2023 Immunization: COVID-19 ( season) 2025 11/04/2020, 10/07/2020 Immunization: Influenza (MyChart) (#1) 2025 Pulmonary Function Testing Completed 07/02/2022 Medical Devices Explanted Type Area Soil Conservation Technician Device Identifier Shelf Expiration Date Model / Serial / Lot Paint Bank Mandibular Screws And 9 Hole Plate Explanted:Qty : 6 on 04/11/2023 by Demetrius Stanton Jr., DMD at [facility] Main Maxillofacial Right: Mandible ELLEN DELIOER UNKNOWN / N/A / N/A Description:MANDIBULAR SCREW S X 6 AND 9 HOLE PLATE REMOVED FROM PREVIOUS SURGERY PER DR. CINDY LAWSON Procedures Procedure Name Priority Date/Time Associated Diagnosis Comments BASIC METABOLIC PANEL STAT 03/28/2023 10:29 AM EDT Preop testing [id number] FUNCTION TEST Routine 07/02/2022 11:55 AM EDT Lung nodule from Last 3 Months or Most Recently Relevant to Health Maintenance Results * Basic metabolic panel (03/28/2023 10:29 AM EDT) Sodium 137 133 - 146 mmol/L 03/28/2023 11:48 AM EDT [facility] Potassium 4.0 3.5 - 5.3 mmol/L 03/28/2023 11:48 AM EDT [facility] Chloride 101 98 - 110 mmol/L 03/28/2023 11:48 AM EDT [facility] CO2 30 21 - 33 mmol/L 03/28/2023 11:48 AM EDT [facility] Anion Gap 6 3 - 16 mmol/L 03/28/2023 11:48 AM EDT [facility] BUN 18 7 - 25 mg/dL 03/28/2023 11:48 AM EDT [facility] Creatinine 0.96 0.60 - 1.30 mg/dL 03/28/2023 11:48 AM EDT [facility] Glucose 88 70 - 100 mg/dL 03/28/2023 11:48 AM EDT [facility] Calcium 9.9 8.6 - 10.3 mg/dL 03/28/2023 11:48 AM EDT [facility] Osmolality, Calculated 285 278 - 305 mOsm/kg 03/28/2023 11:48 AM EDT [facility] EGFR 84 03/28/2023 11:48 AM EDT [facility] Comment:As of 2021, the estimated GFR is calculated using the 2020 Chronic Kidney Disease Epidemiology Collaboration (CKD-EPI) equation. In line with the NKF-ASN Task Force Recommendations, this equation does not include a coefficient for race. A single eGFR value is calculated for each patient. The reference interval is >60 mL/min/1.73m2. eGFR values greater than 90 will be reported as >90mL/min/1.73m2. Reference: Jean Carlos C, Tete M, Tess DC, Chad ND, Thompson CA, Bhavya LA, et al. A Unifying Approach for GFR Estimation: Recommendations of the NKF-ASN Task Force on Reassessing the inclusion of Race in Diagnosing Kidney Disease. Am J Kidney Dis. 2020. Plasma 03/28/2023 10:2 9 AM EDT 03/28/2023 11:13 AM EDT Narrative [facility] - 03/28/2023 11:49 AM EDT Must the patient be fasting for this test?->No us Sharon Villalbalorena [facility] BLOOD ORDERABLES Fi nal Result [facility] [address] * Pulmonary function test (07/02/2022 11:55 AM EDT) [facility] Signature FVC 3.93 [facility] FVC% 93 [facility] FEV1 2.06 [facility] FEV1% 66 [facility] FEV1/FVC 52 [facility] FEV1/FVC EXP 64 [facility] VC 4.06 [facility] VC% 94 [facility] RV 3.75 [facility] RV% 142 [facility] TLC 7.81 [facility] TLC% 112 [facility] DLCO 10.75 [facility] RESPONSE TO BRONCHODILATOR 7% FVC, 10% FEV1 [facility] 07/02/2022 11:5 5 AM EDT Impressions [facility] - 07/02/2022 1:08 PM EDT [facility] Pulmonary Function Tests Interpretation David Armenta is a 71 y.o. male who had a pulmonary function test performed at the [facility]. Spirometry shows a moderate obstructive defect. There is no response to bronchodilator demonstrated. Lung volumes show no restrictive defect. Hyperinflation is not seen on lung volume testing. Air trapping is present on lung volume testing. Diffusing capacity is moderately decreased. Summary of Pulmonary Function Test results : Moderate obstructive defect with moderately reduced DLCO. Read performed by: Yani White MD 07/02/2022 2:22 PM Final interpretation performed by: Harvey Murillo DO 07/02/2022 4:35 PM us Lyndsey Garza MD PFT ORDERABLES Final Result [facility] [address] [place] [address] from Last 3 Months or Most Recently Relevant to Health Maintenance Insurance [employer] CHOICE PPO MEDICARE [employer] DENTAL Care Teams Vocational School Teacher Relationship Specialty Start Date End Date Abdullahi Valenzuela MD [address] [place] [address] PCP - General Family Medicine 05/21/16
--- NOTE | 2025-07-12 10:00 | CA_ITS ---
FINAL REPORT TECHNIQUE: Grayscale, color Doppler and duplex Doppler ultrasound of the kidneys, aorta and renal arteries was performed. Multiple velocities were measured. CLINICAL HISTORY: Smoker, CAD, HTN FINDINGS: Aorta velocity: 63 cm/sec Right kidney: 8.9 cm. No evidence of hydronephrosis or mass. Right intrarenal RI: 0.76-0.77 Right renal artery velocity: 139 cm/sec. Right RAR (Renal artery-Aortic Ratio): 2.22 Left Kidney: 10.0 cm. No evidence of hydronephrosis. Benign-appearing 1.4 cm cyst. Left intrarenal RI: 0.67-0.73 Left renal artery velocity: 122 cm/sec. Left RAR (Renal Artery-Aortic Ratio): 1.95 IMPRESSION: No evidence of significant renal artery stenosis. Benign left renal cyst. CT angiogram or postcontrast MR angiogram would be more sensitive for evaluation of possible renal artery stenosis. Reviewed, Interpreted and Dictated by Ashu Nix MD Transcribed by Kacey Peñaloza Authenticated and [facility]
--- NOTE | 2025-07-12 11:00 | CA_ITS ---
APPROVED REPORT EXAM: Comprehensive 2D, Doppler, and color-flow Echocardiogram Personnel And Payroll Technician: Charley Zavala RT(R) Ht: 5 ft 9 in Wt: 141lbs BSA: 1.78 BP: 192/96 mmHg Indications: angina, shortness of breath, COPD, hypertension 2D Dimensions LVEF (Kidd's) 65.10 % M: 52 - 72 LV Volume 72.40 mL M: 62 - 150 LV Volume Index 40.7 mL/m2 M: 34 - 74 LA Volume 20.10 mL LA Volume Index 11.29 mL/m2 (M/F) 16-34 EF AP4 46.40 % EF AP2 76.9 % EF BP 65.1 % GL Strain -16.3 % M-Mode Dimensions RVDd 2.61 cm (0.9-2.6) LA Diam 2.69 cm (1.9-4.0) LVDd 3.93 cm (3.5-5.7) LVDs 2.57 cm (3.5-5.7) IVSd 0.86 cm (0.6-1.1) PWd 0.82 cm (0.6-1.1) EF (Teich) 64.40% FS 34.60% EDV (Teich) 67.10 mL TAPSE 2.22 (<1.7) ESV (Teich) 23.90 mL LV Diastology E Decel Time 237 (160-240 msec) E/A Ratio 0.8 Mitral Valve MV E Max Bigg. 72.0 (40-130 cm/s) MV A Velocity 88.0 (40-130 cm/s) E/A Ratio 0.82 MV PHT 69.0 ms Tricuspid Valve TR P. Velocity 248.00 cm/s RAP Estimate 10.00 mmHg RVSP 34.60 mmHg Left Ventricle The left ventricle is normal size. Left ventricular systolic function is normal. The left ventricular ejection fraction is within the normal range. There is increased left ventricular wall thickness. There is normal LV segmental wall motion. Transmitral Doppler flow pattern suggests impaired LV relaxation. LVEF is 55% Right Ventricle The right ventricle is mildly dilated. The right ventricular systolic function is normal. Atria The left atrium size is normal. The right atrium size is normal. There is no color Doppler evidence of interatrial shunt. Aortic Valve The aortic valve opens well. There is no hemodynamically significant aortic valvular stenosis. No aortic regurgitation is present. Mitral Valve The mitral valve is normal in structure. No evidence of mitral valve stenosis. Trace mitral regurgitation is present. Tricuspid Valve The tricuspid valve leaflets are thin and pliable. Trace tricuspid regurgitation. RVSP is 20-25 mmHg. Pulmonic Valve The pulmonary valve is grossly normal in structure. Trace pulmonic valve regurgitation is present. Great Vessels The aortic root is normal in size. IVC is normal in size and collapses >50% with inspiration. Pericardium There is no pericardial effusion. Other Information Study Quality: Fair Conclusion Normal biventricular systolic function. Mild RV dilation. No significant valvular stenosis or regurgitation. Electronically signed by : Delilah aFn MD 07/14/2025 01:47:23
== END 2025-07-12 23:59 | disposition home or self-care (01) ==
LOC: RT 09:30
PROVIDERS: PCP Family Medicine; Visit Provider Physician Assistant
DX: I10 Essential (primary) hypertension (principal); N28.1 Cyst of kidney, acquired; I25.119 Atherosclerotic heart disease of native coronary artery with unspecified angina pectoris; J44.9 Chronic obstructive pulmonary disease, unspecified; F17.200 Nicotine dependence, unspecified, uncomplicated; E78.2 Mixed hyperlipidemia
CPT/HCPCS: 93306; 93976

== ENCOUNTER 2025-07-29 10:46 | Outpatient (CLI) | payer MEDICARE, SELFPAY ==
--- OUTSIDE RECORDS SUMMARY | 2025-07-31 11:05 | XMS_ITS | Clinical Summary ---
Author Organization [facility] Address [facility] [place] [address] Care Team Providers Care Dental Hygiene Administrative Assistant Name Role Phone Abdullahi Valenzuela MD Primary Care Provider [phone] Source Comments This information has been disclosed [...] therelease of HIV test results or diagnoses. [id number] Health Allergies No known active allergies Medications [...] mL 3 Active naloxone (NARCAN) 4 mg/actuation [place] Apply 1 spray in one nostril if needed. Call 911. May repeat dose in other nostril if no response in 3 minutes. 2 each 1 3 Active Active Problems Problem Noted Date Diagnosed Date Coronary artery disease invo lving [place] heart with angina pectoris 03/28/2023 Ischemic cardiomyopathy [...] Completed 07/02/2022 Medical Devices Explanted Type Area Steel Wheel Engraver Device Identifier Shelf Expiration Date Model / Serial / Lot Corn Mandibular Screws And 9 Hole Plate Explanted:Qty : 6 on 04/11/2023 by Demetrius Stanton Jr., DMD at [facility] Main Maxillofacial Right: Mandible ELLEN DELIOER UNKNOWN / N/A / N/A Description:MANDIBULAR SCREW S X 6 AND 9 HOLE PLATE REMOVED FROM PREVIOUS SURGERY PER DR. CINDY LAWSON Procedures Procedure Name Priority Date/Time Associated Diagnosis Comments BASIC METABOLIC PANEL STAT 03/28/2023 10:29 AM EDT Preop testing [id number] FUNCTION TEST Routine 07/02/2022 11:55 AM EDT Lung nodule from Last 3 Months or Most Recently Relevant to Health Maintenance Results * Basic metabolic panel (03/28/2023 10:29 AM EDT) Sodium 137 133 - 146 mmol/L 03/28/2023 11:48 AM EDT [facility] Potassium 4.0 3.5 - 5.3 mmol/L 03/28/2023 11:48 AM EDT [facility] Chloride 101 98 - 110 mmol/L 03/28/2023 11:48 AM EDT [facility] CO2 30 21 - 33 mmol/L 03/28/2023 11:48 AM EDT [facility] Anion Gap 6 3 - 16 mmol/L 03/28/2023 11:48 AM EDT [facility] BUN 18 7 - 25 mg/dL 03/28/2023 11:48 AM EDT [facility] Creatinine 0.96 0.60 - 1.30 mg/dL 03/28/2023 11:48 AM EDT [facility] Glucose 88 70 - 100 mg/dL 03/28/2023 11:48 AM EDT [facility] Calcium 9.9 8.6 - 10.3 mg/dL 03/28/2023 11:48 AM EDT [facility] Osmolality, Calculated 285 278 - 305 mOsm/kg 03/28/2023 11:48 AM EDT [facility] EGFR 84 03/28/2023 11:48 AM EDT [facility] Comment:As of 2021, the estimated GFR [...] AM EDT 03/28/2023 11:13 AM EDT Narrative [facility] - 03/28/2023 11:49 AM EDT Must the patient be fasting for this test?->No us Sharon Villalbalorena [facility] BLOOD ORDERABLES Fi nal Result [facility] [address] * Pulmonary function test (07/02/2022 11:55 AM EDT) [facility] Signature FVC 3.93 [facility] FVC% 93 [facility] FEV1 2.06 [facility] FEV1% 66 [facility] FEV1/FVC 52 [facility] FEV1/FVC EXP 64 [facility] VC 4.06 [facility] VC% 94 [facility] RV 3.75 [facility] RV% 142 [facility] TLC 7.81 [facility] TLC% 112 [facility] DLCO 10.75 [facility] RESPONSE TO BRONCHODILATOR 7% FVC, 10% FEV1 [facility] 07/02/2022 11:5 5 AM EDT Impressions [facility] - 07/02/2022 1:08 PM EDT [facility] Pulmonary Function Tests Interpretation David Armenta is a 71 y.o. male who had a pulmonary function test performed at the [facility]. Spirometry shows a moderate [...] Lyndsey Garza MD PFT ORDERABLES Final Result [facility] [address] [place] [address] from Last 3 Months or Most Recently Relevant to Health Maintenance Insurance [employer] CHOICE PPO MEDICARE HU[employer] DENTAL Care Teams Dental Hygiene Administrative Assistant Relationship Specialty Start Date End Date Abdullahi Valenzuela MD [address] [place] [address] PCP - General Family Medicine 05/21/16
== END 2025-07-29 23:59 ==
LOC: LAB.DROPOF 07-31 10:47
PROVIDERS: PCP Nurse Practitioner; Visit Provider Nurse Practitioner
DX: N30.00 Acute cystitis without hematuria (principal)
CPT/HCPCS: 87086

== ENCOUNTER 2025-08-05 15:48 | Outpatient (CLI) | payer MEDICARE, SELFPAY ==
[2025-08-05 20:42] LABS: Hematocrit 43.8 % (42.0-52.0); Hemoglobin 14.9 g/dL (14.1-18.0); Immature Granulocytes % 0.3 %; Mean Corpuscular HGB Conc 34.0 g/dL (31.8-35.4); Mean Corpuscular Hemoglobin 31.8 pg (27.0-31.2); Mean Corpuscular Volume 93.6 fl (80-94); Nucleated Red Blood Cells % 0 %; Platelet Count 266 K/mm3 (142-424); Red Blood Count 4.68 M/mm3 (4.60-6.20); Red Cell Distribution Width-SD 41.5 fL; White Blood Count 6.4 K/mm3 (4.8-10.8)
[2025-08-06 04:42] LABS: Anion Gap 11.2 mEq/L (5-15); Blood Urea Nitrogen 23 mg/dl (9-20); Calcium 8.8 mg/dl (8.4-10.2); Carbon Dioxide 27 mmol/L (22.0-30.0); Chloride 105 mmol/L (98-107); Creatinine,Serum 1.20 mg/dl (0.66-1.25); Estimated Glomerular Filt Rate 59 ml/min (>60); GFR (African American) 72 ML/MIN (>60); Glucose 109 mg/dl (74-100); Potassium 4.2 mmoL/L (3.5-5.1); Sodium 139 mmol/L (136-145)
== END 2025-08-05 23:59 | disposition home or self-care (01) ==
LOC: LAB.DROPOF 08-06 12:10
PROVIDERS: PCP Nurse Practitioner; Visit Provider Nurse Practitioner
DX: R33.9 Retention of urine, unspecified (principal); R30.0 Dysuria; Z12.5 Encounter for screening for malignant neoplasm of prostate
CPT/HCPCS: 80048; 85025; G0103

== ENCOUNTER 2025-08-15 07:56 | Outpatient (CLI) | payer MEDICARE, SELFPAY ==
[2025-08-15] MEDS: IOPAMIDOL-370 (76%);100ML BOTTLE 75 ML IV (08:20)
[2025-08-15] MEDS: BARIUM SULFATE(READI-CAT2);450ML BOTTLE 450 ML PO (08:20)
[2025-08-15] MEDS: SODIUM CHLORIDE 0.9% 10ML SYR (RAD ONLY) 10 ML IV (08:20)
--- NOTE | 2025-08-15 08:30 | CT_ITS ---
FINAL REPORT TECHNIQUE: Thin section axial images are obtained through the abdomen and pelvis after intravenous contrast. Reconstruction images were obtained from the axial data. Exam was performed using dose reduction techniques. CLINICAL HISTORY: URGENT - bowel and bladder dysfunction COMPARISON: 06/03/2022 FINDINGS: LUNG BASES: Chronic appearing changes are noted in the lung bases. Heart size is normal. LIVER: There is diffuse fatty infiltration of the liver. No focal lesion. GALLBLADDER/BILIARY SYSTEM: The gallbladder is surgically absent. No biliary dilatation. SPLEEN: Unremarkable. PANCREAS: Unremarkable. ADRENALS: Unremarkable. KIDNEYS/URETERS/BLADDER: There are several hypodense renal lesions, that may represent cysts. No solid renal masses identified. There is wall thickening of the urinary bladder. When compared to the prior exam of 2021, there are fewer dependent calcifications noted. However, there are several areas of wall calcification which were not present on the prior exam. The overall wall thickening of the bladder is more pronounced than seen on the prior exam, which may be secondary to cystitis, neoplasm felt to be less likely. GI TRACT: No small bowel obstruction or dilatation. Normal appendix. No acute colon abnormality. The thickening in the hepatic flexure seen on the prior CT is not present on the current exam. There is diverticulosis without evidence of diverticulitis. PELVIC ORGANS: The prostate is enlarged. LYMPH NODES/RETROPERITONEUM/MESENTERY: No lymphadenopathy. No abdominal aortic aneurysm. ABDOMINAL WALL: Bilateral inguinal hernias are present.. FREE FLUID: No ascites. BONES: There is a stable compression fracture of the L1 vertebral body, and stable changes of kyphoplasty at the L4 level. IMPRESSION: 1. Enlarged prostate with wall thickening of the urinary bladder, increased since the prior exam, with fewer calcifications within the bladder but an increase in the wall calcification of the bladder. This may be secondary to cystitis, with neoplasm felt to be less likely. Chronic outlet obstruction may be present, consider cystoscopy if indicated. 2. No other acute intra-abdominal or pelvic abnormalities are identified. Reviewed, Interpreted and Dictated by Erin Jara MD Transcribed by Sharon Arce Authenticated and [facility]
--- NOTE | 2025-08-15 10:00 | US_ITS ---
FINAL REPORT TECHNIQUE: Ultrasound images of the kidneys were obtained. CLINICAL HISTORY: DIFF VOIDING FINDINGS: Limited images of the liver parenchyma demonstrate normal echogenicity. The right kidney measures 8.1 cm in length. There is mild increased echogenicity. There is mild renal cortical thinning. There is an upper pole 1 cm cortical cyst. There is no hydronephrosis. The left kidney measures 1.6 cm in length. There is mild increased echogenicity. There is mild renal cortical thinning. There is an upper pole exophytic 1.4 cm cyst. There is also a 2 cm upper pole cyst. In the midpole, there is a 9 mm calcification. There is no hydronephrosis. IMPRESSION: Findings consistent with medical renal disease bilaterally. No hydronephrosis. Bilateral renal cysts and a nonobstructing stone in the left kidney. Reviewed, Interpreted and Dictated by Salazar Phillips MD Transcribed by Sammie Wang Authenticated and [facility]
== END 2025-08-15 23:59 | disposition home or self-care (01) ==
LOC: RAD 07:57
PROVIDERS: PCP Nurse Practitioner; Visit Provider Nurse Practitioner
DX: N40.3 Nodular prostate with lower urinary tract symptoms (principal); N32.89 Other specified disorders of bladder; N28.1 Cyst of kidney, acquired; N20.0 Calculus of kidney; K59.9 Functional intestinal disorder, unspecified; R39.15 Urgency of urination; R33.8 Other retention of urine; R93.89 Abnormal findings on diagnostic imaging of other specified body structures
CPT/HCPCS: 74177; 76770; Q9967

== ENCOUNTER 2025-09-27 07:42 | Outpatient (CLI) | payer MEDICARE, SELFPAY ==
--- OUTSIDE RECORDS SUMMARY | 2025-09-27 07:44 | XMS_ITS | Clinical Summary ---
Author Organization [facility] Address [facility] [place] [address] Care Team Providers Care Hadoop Developer Name Role Phone Abdullahi Valenzuela MD Primary Care Provider [phone] Source Comments This information has been disclosed [...] therelease of HIV test results or diagnoses. [id number] Allergies No known active allergies Medications [...] mL 3 Active naloxone (NARCAN) 4 mg/actuation [place] Apply 1 spray in one nostril if needed. Call 911. May repeat dose in other nostril if no response in 3 minutes. 2 each 1 3 Active Active Problems Problem Noted Date Diagnosed Date Coronary artery disease invo lving [place] heart with angina pectoris 03/28/2023 Ischemic cardiomyopathy 03/28/2023 Hypertension 03/28/2023 Hyperlipidemia 03/28/2023 Chronic obstructive pulmonary disease 03/28/2023 Tobacco use 03/28/2023 Lung nodule 07/15/2022 Neck swelling 06/03/2016 Family History Medical History Relation Comments Anesthesia problems Neg Hx Social History Tobacco Use Types Packs/Day Years Used Date Smoking Tobacco: Every Day Cigarettes 3 63 Started: 10/10/1962 Smokeless Tobacco: Never Comments:down to [...] (MyChart) 1995 Stool Testing (gFOBT) 1995 Immunization: RSV (Adult) (1 - Risk 50-74 years 1-dose series) 2000 Immunization: Zoster (1 of 2) 2000 Lung Cancer Screening 2000 Abdominal Aortic Aneurysm (AAA) Screening 2015 Renal Function/GFR 03/28/2024 03/28/2023 Immunization: COVID-19 ( season) 2025 11/04/2020, 10/07/2020 Immunization: Influenza (MyChart) (#1) 2025 Pulmonary Function Testing Completed 07/02/2022 Medical Devices Explanted Type Area Superintendent [employer] Device Identifier Shelf Expiration Date Model / Serial / Lot [place] Mandibular Screws And 9 Hole Plate Explanted:Qty : 6 on 04/11/2023 by Demetrius Stanton Jr., DMD at [facility] Main Maxillofacial Right: Mandible ELLEN DELIOER UNKNOWN / N/A / N/A Description:MANDIBULAR SCREW S X 6 AND 9 HOLE PLATE REMOVED FROM PREVIOUS SURGERY PER DR. CINDY LAWSON Procedures Procedure Name Priority Date/Time Associated Diagnosis Comments BASIC METABOLIC PANEL STAT 03/28/2023 10:29 AM EDT Preop testing [id number] FUNCTION TEST Routine 07/02/2022 11:55 AM EDT Lung nodule from Last 3 Months or Most Recently Relevant to Health Maintenance Results * Basic metabolic panel (03/28/2023 10:29 AM EDT) Sodium 137 133 - 146 mmol/L 03/28/2023 11:48 AM EDT [facility] Potassium 4.0 3.5 - 5.3 mmol/L 03/28/2023 11:48 AM EDT [facility] Chloride 101 98 - 110 mmol/L 03/28/2023 11:48 AM EDT [facility] CO2 30 21 - 33 mmol/L 03/28/2023 11:48 AM EDT [facility] Anion Gap 6 3 - 16 mmol/L 03/28/2023 11:48 AM EDT [facility] BUN 18 7 - 25 mg/dL 03/28/2023 11:48 AM EDT [facility] Creatinine 0.96 0.60 - 1.30 mg/dL 03/28/2023 11:48 AM EDT [facility] Glucose 88 70 - 100 mg/dL 03/28/2023 11:48 AM EDT [facility] Calcium 9.9 8.6 - 10.3 mg/dL 03/28/2023 11:48 AM EDT [facility] Osmolality, Calculated 285 278 - 305 mOsm/kg 03/28/2023 11:48 AM EDT [facility] EGFR 84 03/28/2023 11:48 AM EDT [facility] Comment:As of 2021, the estimated [...] AM EDT 03/28/2023 11:13 AM EDT Narrative [facility] - 03/28/2023 11:49 AM EDT Must the patient be fasting for this test?->No us Sharon Villalbalorena [facility] BLOOD ORDERABLES Fi nal Result [facility] [address] * Pulmonary function test (07/02/2022 11:55 AM EDT) [facility] Signature FVC 3.93 [facility] FVC% 93 [facility] FEV1 2.06 [facility] FEV1% 66 [facility] FEV1/FVC 52 [facility] FEV1/FVC EXP 64 [facility] VC 4.06 [facility] VC% 94 [facility] RV 3.75 [facility] RV% 142 [facility] TLC 7.81 [facility] TLC% 112 [facility] DLCO 10.75 [facility] RESPONSE TO BRONCHODILATOR 7% FVC, 10% FEV1 [facility] 07/02/2022 11:5 5 AM EDT Impressions [facility] - 07/02/2022 1:08 PM EDT [facility] Pulmonary Function Tests Interpretation David Armenta is a 71 y.o. male who had a pulmonary function test performed at the [facility]. Spirometry shows a moderate [...] Lyndsey Garza MD PFT ORDERABLES Final Result [facility] [address] [place] [address] from Last 3 Months or Most Recently Relevant to Health Maintenance Insurance [employer] CHOICE PPO MEDICARE [employer] Care Teams Hadoop Developer Relationship Specialty Start Date End Date Abdullahi Valenzuela MD [address] [place] [address] PCP - General Family Medicine 05/21/16
[2025-09-27 08:45] VITALS: PULSE 72; PULSE 73
[2025-09-27] MEDS: ALBUTEROL 0.083% 2.5 MG/3 ML NEB IH (08:45)
== END 2025-09-27 23:59 | disposition home or self-care (01) ==
LOC: RT 07:43
PROVIDERS: PCP Nurse Practitioner Family; Visit Provider Nurse Practitioner Family
DX: J44.9 Chronic obstructive pulmonary disease, unspecified (principal); R94.2 Abnormal results of pulmonary function studies
CPT/HCPCS: 94060; 94618; 94640; 94726; 94729

== ENCOUNTER 2025-10-07 06:59 | Outpatient (CLI) | payer MEDICARE, SELFPAY ==
--- NOTE | 2025-10-07 07:00 | CT_ITS ---
FINAL REPORT TECHNIQUE: Thin section axial images were obtained through the lungs using a low-dose technique per lung cancer screening protocol. Reconstruction images were obtained using the axial data. Exam was performed using dose reduction technique. This study was performed with techniques to keep radiation doses as low as reasonably achievable (ALARA). Individualized dose reduction techniques using automated exposure control or adjustment of mA and/or kV according to the patient's size were employed. CLINICAL HISTORY: lung cancer screening CURRENT SMOKER 1PPD X60 YEARS COMPARISON: CT chest 05/04/2024 FINDINGS: CTDLvol: 2.90 DLP: 110.46 Current smoker 60 pack year history Lungs: There is a spiculated nodule in the left upper lobe, which measures 9 x 5 mm in size, was previously 8 x 7 mm. This is best seen on image #13 of series 4. There is a second left upper lobe nodule best seen on image #19 of series 4, which measures 6 mm, was previously 7 mm. There are multiple new nodular opacities in the right lung. There is a pleural-based posterior right upper lobe nodule measuring 17 mm seen on image #38 of series 4. There are several adjacent nodules, an example of which is an 11 mm nodule best seen on image #41 of series 4. There are several less than 5 mm in size nodules in the right middle lobe, and multiple new nodules in the right lower lobe. A prominent right lower lobe nodule is seen on image #60 of series 4, measuring 18 mm in size. Changes of emphysema are present, as well as evidence of prior granulomatous disease. Lymph nodes: No thoracic lymphadenopathy. Mediastinum: Heart size is normal. There are prominent coronary artery calcifications present. Pleura/pericardium: No pleural or pericardial effusion. Other: No acute abnormality in the upper abdomen. IMPRESSION: 1. There are multiple new right lung opacities when compared to the prior exam, which may be infectious/inflammatory or neoplastic. 2. Stable left upper lobe nodules. 3. Prominent coronary artery calcifications. Lung RADS: 0 Recommendation: 4-week follow-up chest CT or bronchoscopy if indicated. Reviewed, Interpreted and Dictated by Erin Jara MD Transcribed by Sharon Arce Authenticated and [facility]
--- OUTSIDE RECORDS SUMMARY | 2025-10-07 07:02 | XMS_ITS | Clinical Summary ---
Author Organization [facility] Address [facility] [place] [address] Care Team Providers Care Courtroom Reporter Name Role Phone Abdullahi Valenzuela MD Primary Care Provider [phone] Source Comments This information has been disclosed [...] therelease of HIV test results or diagnoses. [id number] Health Allergies No known active [...] mL 3 Active naloxone (NARCAN) 4 mg/actuation [place] Apply 1 spray in one nostril if needed. Call 911. May repeat dose in other nostril if no response in 3 minutes. 2 each 1 3 Active Active Problems Problem Noted Date Diagnosed Date Coronary artery disease invo lving [place] heart with angina pectoris 03/28/2023 Ischemic cardiomyopathy [...] Completed 07/02/2022 Medical Devices Explanted Type Area Fire Ranger Device Identifier Shelf Expiration Date Model / Serial / Lot [place] Mandibular Screws And 9 Hole Plate Explanted:Qty : 6 on 04/11/2023 by Demetrius Stanton Jr., DMD at [facility] Main Maxillofacial Right: Mandible ELLEN DELIOER UNKNOWN / N/A / N/A Description:MANDIBULAR SCREW S X 6 AND 9 HOLE PLATE REMOVED FROM PREVIOUS SURGERY PER DR. CINDY LAWSON Procedures Procedure Name Priority Date/Time Associated Diagnosis Comments BASIC METABOLIC PANEL STAT 03/28/2023 10:29 AM EDT Preop testing [id number] FUNCTION TEST Routine 07/02/2022 11:55 AM EDT Lung nodule from Last 3 Months or Most Recently Relevant to Health Maintenance Results * Basic metabolic panel (03/28/2023 10:29 AM EDT) Sodium 137 133 - 146 mmol/L 03/28/2023 11:48 AM EDT [facility] Potassium 4.0 3.5 - 5.3 mmol/L 03/28/2023 11:48 AM EDT [facility] Chloride 101 98 - 110 mmol/L 03/28/2023 11:48 AM EDT [facility] CO2 30 21 - 33 mmol/L 03/28/2023 11:48 AM EDT [facility] Anion Gap 6 3 - 16 mmol/L 03/28/2023 11:48 AM EDT [facility] BUN 18 7 - 25 mg/dL 03/28/2023 11:48 AM EDT [facility] Creatinine 0.96 0.60 - 1.30 mg/dL 03/28/2023 11:48 AM EDT [facility] Glucose 88 70 - 100 mg/dL 03/28/2023 11:48 AM EDT [facility] Calcium 9.9 8.6 - 10.3 mg/dL 03/28/2023 11:48 AM EDT [facility] Osmolality, Calculated 285 278 - 305 mOsm/kg 03/28/2023 11:48 AM EDT [facility] EGFR 84 03/28/2023 11:48 AM EDT [facility] Comment:As of 2021, the [...] Jean Carlos C, Tete M, Tess [place], Cahd [place], Thompson [place], Bhavya [place], et al. A Unifying Approach for GFR Estimation: Recommendations of the NKF-ASN Task Force on Reassessing the inclusion of Race in Diagnosing Kidney Disease. Am J Kidney Dis. 2020. Plasma 03/28/2023 10:2 9 AM EDT 03/28/2023 11:13 AM EDT Narrative [facility] - 03/28/2023 11:49 AM EDT Must the patient be fasting for this test?->No us Sharon Villalbalorena [facility] BLOOD ORDERABLES Fi nal Result [facility] [address] * Pulmonary function test (07/02/2022 11:55 AM EDT) [facility] Signature FVC 3.93 [facility] FVC% 93 [facility] FEV1 2.06 [facility] FEV1% 66 [facility] FEV1/FVC 52 [facility] FEV1[facility]FVC EXP 64 [facility] VC 4.06 [facility] VC% 94 [facility] RV 3.75 [facility] RV% 142 [facility] TLC 7.81 [facility] TLC% 112 [facility] DLCO 10.75 [facility] RESPONSE TO BRONCHODILATOR 7% FVC, 10% FEV1 [facility] 07/02/2022 11:[address] [facility] - 07/02/2022 1:08 PM EDT [facility] Pulmonary Function Tests Interpretation David Armenta is a 71 y.o. male who had a pulmonary function test performed at the [facility]. Spirometry shows a moderate [...] Lyndsey Garza MD PFT ORDERABLES Final Result [facility] [address] [place] [address] from Last 3 Months or Most Recently Relevant to Health Maintenance Insurance [employer] CHO[employer] PPO MEDICARE [employer] Care Teams Courtroom Reporter Relationship Specialty Start Date End Date Abdullahi Valenzuela MD [address] [place] [address] PCP - General Family Medicine 05/21/16
== END 2025-10-07 23:59 ==
LOC: RAD 07:00
PROVIDERS: PCP Nurse Practitioner Family; Visit Provider Nurse Practitioner Family
DX: Z12.2 Encounter for screening for malignant neoplasm of respiratory organs (principal); F17.210 Nicotine dependence, cigarettes, uncomplicated; R91.8 Other nonspecific abnormal finding of lung field; J43.9 Emphysema, unspecified; I25.10 Atherosclerotic heart disease of native coronary artery without angina pectoris
CPT/HCPCS: 71271